=== PATIENT | male | born 1945 | race Caucasian/White ===

== ENCOUNTER → 2016-05-28 | Outpatient (CLI) | payer MEDICARE, OTHER | LOC: OD 10:35 | PROVIDERS: ATTEND Urology | DX: Z85.46 Personal history of malignant neoplasm of prostate (principal) | CPT/HCPCS: 36415; 84153 ==

== ENCOUNTER → 2016-06-18 | Outpatient (CLI) | payer MEDICARE, OTHER ==
[2016-06-18 10:50] LABS: CHOLESTEROL 130.55 mg/dL (0-200); Direct HDL 39 mg/dL (>40); TRIGLYCERIDES 163 mg/dL (<150)
[2016-06-18 11:01] LABS: DIRECT LDL 74 mg/dL (<100)
[2016-06-18 11:02] LABS: VLDL CHOLESTEROL 32.6 mg/dL (10-31)
== END ==
LOC: OD 09:09
PROVIDERS: ATTEND Internal Medicine
DX: E78.5 Hyperlipidemia, unspecified (principal)
CPT/HCPCS: 36415; 80061

== ENCOUNTER → 2016-06-26 | Outpatient (CLI) | payer MEDICARE, OTHER ==
[2016-06-26 15:59] LABS: APPEARANCE,URINE SLIGHTLY-CLOUDY; BILIRUBIN,URINE NEGATIVE (NEGATIVE); GLUCOSE, URINE NEGATIVE (NEGATIVE); KETONES,URINE NEGATIVE (NEGATIVE); LEUKOCYTE ESTERASE,URINE LARGE (NEGATIVE); NITRITE,URINE NEGATIVE (NEGATIVE); PROTEIN,URINE 30 mg/dL (NEGATIVE); URINE SPECIFIC GRAVITY 1.023; UROBILINOGEN,URINE NEGATIVE mg/dL (<2.0)
== END ==
LOC: OD 14:43
PROVIDERS: ATTEND Internal Medicine
DX: N39.0 Urinary tract infection, site not specified (principal)
CPT/HCPCS: 81001; 87086; 87088; 87186

== ENCOUNTER → 2016-09-02 | Outpatient (CLI) | payer MEDICARE, OTHER ==
[2016-09-03 11:21] LABS: PROSTATE SPECIFIC ANTIGEN 1.1 ng/mL (0.0-4.0); PSA % FREE 12.7 % (.); PSA FREE 0.14 ng/mL
== END ==
LOC: OD 10:00
PROVIDERS: ATTEND Urology
DX: C61 Malignant neoplasm of prostate (principal)
CPT/HCPCS: 36415; 84154

== ENCOUNTER → 2017-07-14 | Outpatient (CLI) | payer MEDICARE, OTHER ==
[2017-07-14 08:21] LABS: ABSOLUTE BASOPHILS # (AUTO) 0.1 10^3/uL (0.0-0.2); ABSOLUTE EOSINOPHILS # (AUTO) 0.3 10^3/uL (0.0-0.6); ABSOLUTE LYMPHOCYTES (AUTO) 2.8 10^3/uL (0.5-4.7); ABSOLUTE MONOCYTES (AUTO) 0.7 10^3/uL (0.1-1.4); ABSOLUTE NEUT (AUTO) 6.3 10^3/uL (1.7-8.2); BASOPHILS % (AUTO) 0.6 % (0-2); EOSINOPHILS % (AUTO) 3.4 % (0-6); HEMATOCRIT 40.7 % (37.9-51.0); HEMOGLOBIN 13.9 g/dL (13.5-17.0); LYMPHOCYTES % (AUTO) 26.9 % (13-45); MEAN CORPUSCULAR HEMOGLOBIN 30.8 pg (27.0-33.4); MEAN CORPUSCULAR HGB CONC 34.1 g/dL (32.0-36.0); MEAN CORPUSCULAR VOLUME 91 fl (80-97); MONOCYTES % (AUTO) 7.2 % (3-13); PLATELET COUNT 355 10^3/uL (150-450); RED CELL DISTRIBUTION WIDTH 13.7 % (11.5-14.0); SEGMENTED NEUTROPHILS % (AUTO) 61.9 % (42-78); TOTAL CELLS COUNTED % (AUTO) 100 %; WHITE BLOOD COUNT 10.2 10^3/uL (4.0-10.5)
[2017-07-14 08:42] LABS: ALANINE AMINOTRANSFERASE 34 U/L (21-72); ALBUMIN 4.2 g/dL (3.5-5.0); ALKALINE PHOSPHATASE 80 U/L (38-126); ANION GAP 11 (5-19); ASPARTATE AMINO TRANSFERASE 19 U/L (17-59); BILIRUBIN,DIRECT 0.3 mg/dL (0.0-0.4); BILIRUBIN,TOTAL 0.3 mg/dL (0.2-1.3); BLOOD UREA NITROGEN 17 mg/dL (7-20); CALCIUM 9.9 mg/dL (8.4-10.2); CARBON DIOXIDE 30 mmol/L (22-30); CHLORIDE 105 mmol/L (98-107); GLUCOSE 98 mg/dL (75-110); POTASSIUM 4.5 mmol/L (3.6-5.0); SODIUM 146.1 mmol/L (137-145); TRIGLYCERIDES 177 mg/dL (<150)
[2017-07-14 08:53] LABS: DIRECT LDL 151 mg/dL (<100)
[2017-07-14 08:54] LABS: VLDL CHOLESTEROL 35.4 mg/dL (10-31)
--- NOTE | 2017-07-14 09:12 | RADIOLOGY REPORT (SQ) ---
EXAM DESCRIPTION: KNEE RIGHT 4 VIEWS COMPLETED DATE/TIME: 07/14/2017 8:29 am REASON FOR STUDY: RT KNEE PAIN; LOW BACK PAIN I10 ESSENTIAL (PRIMARY) HYPERTENSION COMPARISON: None. NUMBER OF VIEWS: Four views. TECHNIQUE: AP, lateral, and both oblique radiographic images acquired of the right knee. LIMITATIONS: None. FINDINGS: MINERALIZATION: Normal. BONES: No acute fracture or dislocation. No worrisome bone lesions. JOINT: Mild patellofemoral, medial, and lateral compartment joint space narrowing. SOFT TISSUES: No soft tissue swelling. No radio-opaque foreign body. OTHER: No other significant finding. IMPRESSION: Mild tricompartment joint space narrowing TECHNICAL DOCUMENTATION: JOB ID: [id number] [employer]- All Rights Reserved
--- NOTE | 2017-07-14 09:14 | RADIOLOGY REPORT (SQ) ---
EXAM DESCRIPTION: LUMBAR SPINE COMPLETE COMPLETED DATE/TIME: 07/14/2017 8:29 am REASON FOR STUDY: RT KNEE PAIN; LOW BACK PAIN I10 ESSENTIAL (PRIMARY) HYPERTENSION COMPARISON: None. NUMBER OF VIEWS: Five views including obliques. TECHNIQUE: AP, lateral, oblique, and sacral radiographic images acquired of the lumbar spine. LIMITATIONS: None. FINDINGS: MINERALIZATION: Normal. SEGMENTATION: Normal. No transitional anatomy. ALIGNMENT: Normal. VERTEBRAE: Maintained height. No fracture or worrisome bone lesion. DISCS: Mild disc space loss of height at L2-3 and L5-S1 POSTERIOR ELEMENTS: Bulky facet arthropathy bilaterally at L5-S1, moderate bilateral facet arthropath y at L4-5 HARDWARE: None in the spine. PARASPINAL SOFT TISSUES: Normal. PELVIS: Not included in the field of view. Mild vacuum phenomenon at the SI joints bilaterally OTHER: No other significant finding. IMPRESSION: Lower lumbar facet arthropathy. TECHNICAL DOCUMENTATION: JOB ID: [id number] [employer]- All Rights Reserved
--- NOTE | 2017-07-14 09:15 | RADIOLOGY REPORT (SQ) ---
EXAM DESCRIPTION: SACRUM AND COCCYX COMPLETED DATE/TIME: 07/14/2017 8:30 am REASON FOR STUDY: RT KNEE PAIN; LOW BACK PAIN I10 ESSENTIAL (PRIMARY) HYPERTENSION COMPARISON: Lumbar spine films same date NUMBER OF VIEWS: Three views. TECHNIQUE: AP, lateral, and tilt views of the sacrum and coccyx. LIMITATIONS: None. FINDINGS: MINERALIZATION: Normal. BONES: Mild bilateral SI joint sclerosis. No fracture. SOFT TISSUES: Radiotherapy seeds for prostate treatment OTHER: No other significant finding. IMPRESSION: Mild SI joint sclerosis bilaterally TECHNICAL DOCUMENTATION: JOB ID: [id number] [employer]- All Rights Reserved
== END ==
LOC: OD 07:42
PROVIDERS: ATTEND Family Medicine Geriatric Medicine
DX: M25.561 Pain in right knee (principal); M54.40 Lumbago with sciatica, unspecified side; I10 Essential (primary) hypertension; E78.5 Hyperlipidemia, unspecified; J30.89 Other allergic rhinitis; Z79.899 Other long term (current) drug therapy
CPT/HCPCS: 36415; 72110; 72220; 80053; 80061; 84443; 85025

== ENCOUNTER → 2017-09-10 | Outpatient (CLI) | payer MEDICARE, OTHER ==
[2017-09-10 11:11] LABS: ALANINE AMINOTRANSFERASE 32 U/L (21-72); ASPARTATE AMINO TRANSFERASE 22 U/L (17-59); CHOLESTEROL 125.99 mg/dL (0-200); TRIGLYCERIDES 114 mg/dL (<150)
[2017-09-10 11:21] LABS: DIRECT LDL 55 mg/dL (<100)
== END ==
LOC: OD 09:39
PROVIDERS: ATTEND Family Medicine Geriatric Medicine
DX: E78.5 Hyperlipidemia, unspecified (principal); Z79.899 Other long term (current) drug therapy
CPT/HCPCS: 36415; 80061; 84450; 84460

== ENCOUNTER → 2017-10-16 | Outpatient (CLI) | payer MEDICARE, OTHER ==
[2017-10-17 12:07] LABS: PROSTATE SPECIFIC ANTIGEN 0.9 ng/mL (0.0-4.0); PSA % FREE 15.6 % (.); PSA FREE 0.14 ng/mL
== END ==
LOC: OD 10:27
PROVIDERS: ATTEND Urology
DX: C61 Malignant neoplasm of prostate (principal)
CPT/HCPCS: 36415; 84154

== ENCOUNTER → 2017-12-08 | Outpatient (CLI) | payer MEDICARE, OTHER ==
--- NOTE | 2017-12-08 10:56 | RADIOLOGY REPORT (SQ) ---
EXAM DESCRIPTION: CT ABD/PELVIS COMBO COMPLETED DATE/TIME: 12/08/2017 10:12 am REASON FOR STUDY: MICROSCOPIC HEMATURIA R31.29 OTHER MICROSCOPIC HEMATURIA COMPARISON: None. TECHNIQUE: CT scan of the abdomen and pelvis performed with and without intravenous contrast, and wi thout oral contrast. Contrasted imaging performed helical scanning technique and dynamic intravenous contrast injection. Images reviewed with lung, soft tissue, and bone windows. Reconstructed coronal a nd sagittal MPR images reviewed. Delayed images for evaluation of the urinary system also acquired. A ll images stored on PACS. All CT scanners at this facility use dose modulation, iterative reconstruction, and/or weight based d osing when appropriate to reduce radiation dose to as low as reasonably achievable (ALARA). [facility]: Dose Right [facility]: CareDose [facility]: Dose Right [facility]: Teradose 4D [facility]: SwiftPayMD(TM) by [employer] CONTRAST TYPE AND DOSE: contrast/concentration: Isovue 370.00 mg/ml; Total Contrast Delivered: 100.0 ml; Total Saline Delivered: 72.0 ml RENAL FUNCTION: Creatinine 1.0 RADIATION DOSE: CT Rad equipment meets quality standard of care and radiation dose reduction techniq ues were employed. CTDIvol: 22.6 - 26.0 mGy. DLP: 4202 mGy-cm. . LIMITATIONS: None. FINDINGS: NON-CONTRASTED IMAGING: No significant renal or bladder calcifications. No other significa nt organ calcifications. POST-CONTRASTED IMAGING: LOWER CHEST: No significant findings. No nodules or infiltrates. LIVER: Normal size. No masses. No dilated ducts. SPLEEN: Normal size. No focal lesions. PANCREAS: No masses. No significant calcifications. No adjacent inflammation or peripancreatic fluid collections. Pancreatic duct not dilated. GALLBLADDER: Surgically absent ADRENAL GLANDS: No significant masses or asymmetry. RIGHT KIDNEY AND URETER: No solid masses. No significant calcifications. No hydronephrosis or hyd roureter. LEFT KIDNEY AND URETER: No solid masses. No significant calcifications. No hydronephrosis or hydr oureter. AORTA AND VESSELS: No aneurysm. No dissection. Renal arteries, SMA, celiac without stenosis. RETROPERITONEUM: No retroperitoneal adenopathy, hemorrhage or masses. BOWEL AND PERITONEAL CAVITY: No masses or inflammatory changes. No free fluid or peritoneal masses. Scattered colonic diverticuli without CT signs of acute diverticulitis. APPENDIX: Normal. PELVIS: No mass. No free fluid. Normal bladder. ABDOMINAL WALL: No masses. No hernias. BONES: No significant or acute findings. OTHER: No other significant finding. IMPRESSION: No CT findings to explain history of microscopic hematuria. Post cholecystectomy. Colonic diverticuli are present without CT signs of acute diverticulitis. TECHNICAL DOCUMENTATION: JOB ID: [id number] Quality ID # [id number]: Final reports with documentation of one or more dose reduction techniques (e.g., Au tomated exposure control, adjustment of the mA and/or kV according to patient size, use of iterative reconstruction technique) 2010 [employer]- All Rights Reserved Reading location - IP/workstation name: [facility] [place]
== END ==
LOC: RAD 09:29
PROVIDERS: ATTEND Urology
DX: R31.29 Other microscopic hematuria (principal)
CPT/HCPCS: 74178; 82565

== ENCOUNTER → 2018-03-16 | Outpatient (CLI) | payer MEDICARE, OTHER ==
[2018-03-16 10:56] LABS: CHOLESTEROL 202.09 mg/dL (0-200); TRIGLYCERIDES 215 mg/dL (<150)
[2018-03-16 11:07] LABS: DIRECT LDL 141 mg/dL (<100)
== END ==
LOC: OD 09:35
PROVIDERS: ATTEND Internal Medicine
DX: E78.5 Hyperlipidemia, unspecified (principal); E03.9 Hypothyroidism, unspecified; N40.0 Benign prostatic hyperplasia without lower urinary tract symptoms
CPT/HCPCS: 36415; 80061; 84153; 84443

== ENCOUNTER → 2018-06-22 | Outpatient (CLI) | payer MEDICARE, OTHER ==
[2018-06-22 09:48] LABS: ABSOLUTE EOSINOPHILS # (AUTO) 0.2 10^3/uL (0.0-0.6); ABSOLUTE LYMPHOCYTES (AUTO) 2.2 10^3/uL (0.5-4.7); ABSOLUTE MONOCYTES (AUTO) 0.8 10^3/uL (0.1-1.4); ABSOLUTE NEUT (AUTO) 6.9 10^3/uL (1.7-8.2); BASOPHILS % (AUTO) 0.4 % (0-2); EOSINOPHILS % (AUTO) 1.8 % (0-6); HEMATOCRIT 40.4 % (37.9-51.0); HEMOGLOBIN 13.9 g/dL (13.5-17.0); MEAN CORPUSCULAR HEMOGLOBIN 30.9 pg (27.0-33.4); MEAN CORPUSCULAR HGB CONC 34.5 g/dL (32.0-36.0); MEAN CORPUSCULAR VOLUME 89 fl (80-97); MONOCYTES % (AUTO) 7.5 % (3-13); PLATELET COUNT 328 10^3/uL (150-450); RED BLOOD COUNT 4.51 10^6/uL (4.35-5.55); RED CELL DISTRIBUTION WIDTH 13.1 % (11.5-14.0); SEGMENTED NEUTROPHILS % (AUTO) 68.3 % (42-78); TOTAL CELLS COUNTED % (AUTO) 100 %
[2018-06-22 10:03] LABS: ALANINE AMINOTRANSFERASE 34 U/L (21-72); ALBUMIN 4.5 g/dL (3.5-5.0); ALKALINE PHOSPHATASE 82 U/L (38-126); ANION GAP 11 (5-19); ASPARTATE AMINO TRANSFERASE 21 U/L (17-59); BILIRUBIN,DIRECT 0.1 mg/dL (0.0-0.4); BILIRUBIN,TOTAL 0.2 mg/dL (0.2-1.3); BLOOD UREA NITROGEN 22 mg/dL (7-20); CALCIUM 9.9 mg/dL (8.4-10.2); CARBON DIOXIDE 33 mmol/L (22-30); CHLORIDE 103 mmol/L (98-107); CHOLESTEROL 152.54 mg/dL (0-200); GLUCOSE 93 mg/dL (75-110); POTASSIUM 4.3 mmol/L (3.6-5.0); SODIUM 146.9 mmol/L (137-145); TRIGLYCERIDES 183 mg/dL (<150)
[2018-06-22 10:14] LABS: DIRECT LDL 94 mg/dL (<100)
[2018-06-22 10:19] LABS: VLDL CHOLESTEROL 36.6 mg/dL (10-31)
== END ==
LOC: OD 08:35
PROVIDERS: ATTEND Internal Medicine
DX: E78.5 Hyperlipidemia, unspecified (principal); D64.9 Anemia, unspecified; R10.9 Unspecified abdominal pain
CPT/HCPCS: 36415; 80053; 80061; 85025

== ENCOUNTER → 2018-09-16 | Outpatient (CLI) | payer MEDICARE, OTHER ==
[2018-09-16 10:48] LABS: ANION GAP 9 (5-19); BLOOD UREA NITROGEN 20 mg/dL (7-20); CALCIUM 10.3 mg/dL (8.4-10.2); CARBON DIOXIDE 31 mmol/L (22-30); CHLORIDE 103 mmol/L (98-107); CHOLESTEROL 147.66 mg/dL (0-200); GLUCOSE 93 mg/dL (75-110); POTASSIUM 4.7 mmol/L (3.6-5.0); SODIUM 143.2 mmol/L (137-145); TRIGLYCERIDES 181 mg/dL (<150)
[2018-09-16 10:59] LABS: DIRECT LDL 95 mg/dL (<100)
[2018-09-16 11:09] LABS: VLDL CHOLESTEROL 36.2 mg/dL (10-31)
== END ==
LOC: OD 08:53
PROVIDERS: ATTEND Internal Medicine
DX: E78.5 Hyperlipidemia, unspecified (principal); N19 Unspecified kidney failure
CPT/HCPCS: 36415; 80048; 80061

== ENCOUNTER → 2019-03-08 | Outpatient (CLI) | payer MEDICARE, OTHER ==
[2019-03-08 13:23] LABS: ANION GAP 7 (5-19); BLOOD UREA NITROGEN 22 mg/dL (7-20); CALCIUM 10.3 mg/dL (8.4-10.2); CARBON DIOXIDE 32 mmol/L (22-30); CHLORIDE 103 mmol/L (98-107); CHOLESTEROL 150.63 mg/dL (0-200); GLUCOSE 95 mg/dL (75-110); POTASSIUM 5.1 mmol/L (3.6-5.0); TRIGLYCERIDES 167 mg/dL (<150)
[2019-03-08 13:34] LABS: DIRECT LDL 96 mg/dL (<100)
[2019-03-08 13:39] LABS: VLDL CHOLESTEROL 33.4 mg/dL (10-31)
== END ==
LOC: OD 09:26
PROVIDERS: ATTEND Family Medicine
DX: E78.5 Hyperlipidemia, unspecified (principal); N19 Unspecified kidney failure
CPT/HCPCS: 36415; 80048; 80061

== ENCOUNTER 2019-11-30 14:20 | Inpatient (IN) | payer MEDICARE, OTHER ==
[~2019-11-30 14:20] MED LIST: PHENYLEPHRINE HCL INJ/PF 10 MG/1 ML SDV ONE; SUCCINYLCHOLINE CHLORIDE INJ 200 MG/10 ML VIAL ONE
--- NOTE | 2019-11-30 15:45 | ER Document Report ---
ED Medical Screen (RME) - General Chief Complaint: Abscess Stated Complaint: ABSCESS Time Seen by Provider: 11/30/19 15:40 Primary Care Provider: ARINA AGUIRRE MD [Primary Care Provider] - Follow up as needed Information source: Patient Notes: Patient presents with abscess to the right upper back area for the past week. Patient was seen by his primary doctor and referred to the surgical clinic for management of the abscess. Patient went to the surgical clinic and was seen by the PA who felt that abscess was larger than what to be managed in the office and advised follow-up in the ER for consultation with Dr. Moreno. I have greeted and performed a rapid initial assessment of this patient. A comprehensive ED assessment and evaluation of the patient, analysis of test results and completion of the medical decision making process will be conducted by additional ED providers. TRAVEL OUTSIDE OF THE [place] IN LAST 30 DAYS: Yes - Related Data Allergies/Adverse Reactions: No Known Allergies Allergy (Verified 11/30/19 15:39) Physical Exam - Vital signs Vitals: Temp Pulse Resp BP Pulse Ox 99.1 F 72 20 128/70 H 96 11/30/19 15:00 11/30/19 15:00 11/30/19 15:00 11/30/19 15:00 11/30/19 15:00 - Skin Skin irregularity: Abscess - Large abscess to the right upper back area with surrounding erythema, Erythema Course - Vital Signs Vital signs: Temp Pulse Resp BP Pulse Ox 99.1 F 72 20 128/70 H 96 11/30/19 15:00 11/30/19 15:00 11/30/19 15:00 11/30/19 15:00 11/30/19 15:00 Doctor's Discharge - Discharge Referrals: ARINA AGUIRRE MD [Primary Care Provider] - Follow up as needed
[2019-11-30] MEDS ORDERED: SULFAMETHOX/TRIMETH 800-160 MG/10 ML VIAL IV ONE (16:58)
[2019-11-30] MEDS ORDERED: NORMAL SALINE 1000 ML 1,000 ML IV ONE (16:58)
--- NOTE | 2019-11-30 17:04 | ER Document Report ---
ED General - General Chief Complaint: Abscess Stated Complaint: ABSCESS Time Seen by Provider: 11/30/19 15:40 Primary Care Provider: ARINA AGUIRRE MD [Primary Care Provider] - Follow up as needed Notes: Patient is a 74-year-old male with no reported past medical history who presents to the emergency department with a chief complaint of abscess formation to the right upper back that began about a week ago. Denies any history of the same. Was seen by his primary doctor who referred him to the "surgical clinic" for evaluation. The physician city carrier assistant for Dr. Moreno at the surgical clinic advised this was too extensive for the clinic and referred the patient to the emergency department for further evaluation and care. Patient denies any fever or significant drainage. Denies any nausea, vomiting, chills, night sweats. TRAVEL OUTSIDE OF THE [place] IN LAST 30 DAYS: Yes - Related Data Allergies/Adverse Reactions: No Known Allergies Allergy (Verified 11/30/19 15:39) Home Medications: cholesterol. losartan. aspirin. flonase. tylenol. gabapentin Past Medical History - General Information source: Patient - Social History Smoking Status: Never Smoker Chew tobacco use (# tins/day): No Frequency of alcohol use: None Drug Abuse: None Family History: Reviewed & Not Pertinent Patient has homicidal ideation: No Review of Systems - Review of Systems Notes: As per HPI otherwise negative Physical Exam - Vital signs Vitals: Temp Pulse Resp BP Pulse Ox 99.1 F 72 20 128/70 H 96 11/30/19 15:00 11/30/19 15:00 11/30/19 15:00 11/30/19 15:00 11/30/19 15:00 - General General appearance: Appears well, Alert In distress: None - Respiratory Respiratory status: No respiratory distress Chest status: Nontender Breath sounds: Normal Chest palpation: Normal - Cardiovascular Rhythm: Regular Heart sounds: Normal auscultation - Neurological Neuro grossly intact: Yes Cognition: Normal Orientation: AAOx4 - Psychological Associated symptoms: Normal affect, Normal mood - Skin Skin Color: Other - Circumferential area of erythema and induration to the right upper back small section pointing with scant drainage that is purulent in nature. Area demonstrates increased warmth. No proximal streaking. Area is tender to palpation. Course - Re-evaluation Re-evalutation: 11/30/19 17:03 Dr. Moreno to bedside, evaluated the patient and requested IV Bactrim. He will take the patient to the operating room for definitive care. Patient stable for intervention at this time. Labs and medication ordered. Pending studies to the operating room. - Vital Signs Vital signs: Temp Pulse Resp BP Pulse Ox 99.1 F 72 20 128/70 H 96 11/30/19 15:40 11/30/19 15:00 11/30/19 15:00 11/30/19 15:00 11/30/19 15:00 Discharge - Discharge Clinical Impression: Abscess of back Condition: Stable Disposition: OTHER Admitting Provider: Tiffanie Unit Admitted: OR Referrals: ARINA AGUIRRE MD [Primary Care Provider] - Follow up as needed
--- NOTE | 2019-11-30 17:17 | PDOC H&P ---
History of Present Illness Admission Date/PCP: ARINA AGUIRRE MD History of Present Illness: JUAN LUIS HALL is a 74 year old malePatient presents with abscess to the right upper back area for the past week. Patient was seen by his primary doctor and referred to the surgical clinic for management of the abscess. Patient went to the surgical clinic and was seen by the PA who felt that abscess was larger than what to be managed in the office and advised follow-up in the ER for cons ultation with Dr. Moreno Past Medical History Cardiac Medical History: Reports: Hyperlipidema, Hypertension Pulmonary Medical History: Denies: None, Asthma, Bronchitis, Chronic Obstructive Pulmonary Disease (COPD), Intubation, Pneumonia, Respiratory Failure, Sleep Apnea, Tuberculosis, Other EENT Medical History: Denies: None, Cataracts, Eyes, Ears, Nose, Throat, Other Neurological Medical History: Denies: None, Hemorrhagic CVA, Ischemic CVA, Migraine, Multiple Sclerosis, Seizures, Other Endocrine Medical History: Denies: None, Diabetes Mellitus Type 1, Diabetes Mellitus Type 2, Gestational Diabetes, Hyperthyroidism, Hypothyroidism, Obesity, Other Malignancy Medical History: Denies: None, Bone Cancer, Brain Cancer, Breast Cancer, Cervical Cancer, Colorectal Cancer, Leukemia, Liver Cancer, Lung Cancer, Lymphoma, Ovarian Cancer, Pancreatic Cancer, Renal (Kidney) Cancer, Skin Cancer, Other GI Medical History: Denies: None, Cirrhosis, Crohn's Disease, Diverticulitis, Gastroesophageal R eflux Disease, Hepatitis, Hiatal Hernia, Peptic Ulcer Disease, Ulcerative Colitis, Other Musculoskeltal Medical History: Reports: Arthritis Denies: None, Fibromyalgia, Gout, Other Psychiatric Medical History: Denies: None, Alcohol Dependency, Attention Deficit Hyperactivity Disorder, Bipolar Disorder, Dementia, Depression, General Anxiety Disorder, Personality Disorder, Post Traumatic Stress Disorder, Schizoaffective Disorder, Substance Abuse, Tobacco Dependency, Other Traumatic Medical History: Denies: None, Gunshot Wound, Pneumothorax, Stab Wound, Traumatic Brain Injury, Other Hematology: Denies: None, Anemia, Hemophilia, Sickle Cell Disease, Bleeding Tendencies, Heparin Induced Thrombocytopenia, Neutropenia, Other Past Surgical History Past Surgical History: Reports: Cholecystectomy Social History Smoking Status: Never Smoker Electronic Cigarette use?: No Family History Family History: Reviewed & Not Pertinent Parental Family History Reviewed: No Children Family History Reviewed: NA Sibling(s) Family History Reviewed.: NA Medication/Allergy Allergies/Adverse Reactions: No Known Allergies Allergy (Verified 11/30/19 15:39) Review of Systems Constitutional: PRESENT: fatigue Eyes: ABSENT: as per HPI, visual disturbances, other Ears: ABSENT: as per HPI, hearing changes, other Nose, Mouth, and Throat: ABSENT: as per HPI, headache(s), mouth pain, sore throat, vertigo, other Breasts: ABSENT: as per HPI, other Cardiovascular: ABSENT: as per HPI, chest pain, dyspnea on exertion, edema, orthropnea, palpitations, other Respiratory: ABSENT: as per HPI, cough, dyspnea, hemoptysis, sputum, other Gastrointestinal: ABSENT: as per HPI, abdominal pain, bloating, coffee ground emesis, constipation, diarrhea, dysphagia, heartburn, hematemesis, hematochezia, melena, nausea, vomiting, other Genitourinary: ABSENT: as per HPI, difficulty urinating, dysuria, hematuria, nocturia, other Musculoskeletal: ABSENT: as per HPI, back pain, deformity, joint swelling, muscle weakness, other Integumentary: PRESENT: erythema, wounds Neurological: ABSENT: as per HPI, abnormal gait, abnormal movements, abnormal speech, confusion, convulsions, dizziness, focal weakness, frequent falls, lack of coordination, memory loss, numbness, paresthesias, restless legs, syncope, tingling, tremor(s), vertigo, weakness, other Psychiatric: ABSENT: as per HPI, anxiety, depression, hallucinations, homidical ideation, suicidal ideation, other Endocrine: ABSENT: as per HPI, cold intolerance, flushing, heat intolerance, menstrual abnormalities, polydipsia, polyphagia, polyuria, other Hematologic/Lymphatic: ABSENT: as per HPI, easy bleeding, easy bruising, lymphadenopathy, other Allergic/Immunologic: ABSENT: as per HPI, seasonal rhinorrhea, other Physical Exam Vital Signs: Temp Pulse Resp BP Pulse Ox 99.1 F 72 20 128/70 H 96 11/30/19 15:40 11/30/19 15:00 11/30/19 15:00 11/30/19 15:00 11/30/19 15:00 Intake & Output 11/29/19 11/30/19 12/01/19 06:59 06:59 06:59 Weight 121.7 kg General appearance: PRESENT: no acute distress Eye exam: PRESENT: EOMI Ear exam: PRESENT: normal external ear exam Mouth exam: PRESENT: moist Neck exam: PRESENT: full ROM Respiratory exam: PRESENT: clear to auscultation alma delia Cardiovascular exam: PRESENT: RRR Pulses: PRESENT: normal radial pulses, normal femoral pulses Breast: PRESENT: Normal GI/Abdominal exam: ABSENT: ascites, diminished bowel sounds, distended, firm, guarding, hernia, hyperactive bowel sounds, hypoactive bowel sounds, mass, Emerson's sign, normal bowel sounds, organolmegaly, rebound, rigid, soft, tenderness, other Rectal exam: PRESENT: deferred Gentrourinary exam: ABSENT: ecchymosis, erythema, lacerations, lesions, scrotal swelling, testicular tenderness, urethral discharge, indwelling catheter, other Extremities exam: ABSENT: calf tenderness, clubbing, full ROM, joint swelling, pedal edema, tenderness, +1 edema, +2 edema, other Musculoskeletal exam: PRESENT: full ROM, other - Right posterior shoulder there is approximately a 4 cm area of induration with a approximately a 12 cm area of surrounding cellulitis there is some purulent drainage from the center of this induration it appears to be multiloculated fluctuant and with a central area of necrosis consistent with an MRSA abscess Neurological exam: PRESENT: alert Psychiatric exam: PRESENT: appropriate affect Focused psych exam: PRESENT: flight of ideas Skin exam: PRESENT: dry Assessment & Plan - Plan Summary Plan Summary: Impression is back abscess probable MRSA. Plan is for operative excision and drainage of the right posterior shoulder abscess Recent benefits of been discussed with the patient he understands he will have an open wound which will require packing or wound VAC postop. We will start the patient IV antibiotics IV fluid hydration and perform the procedure later this evening.
[2019-11-30 18:12] LABS: ABSOLUTE BASOPHILS # (AUTO) 0.1 10^3/uL (0.0-0.2); ABSOLUTE EOSINOPHILS # (AUTO) 0.2 10^3/uL (0.0-0.6); ABSOLUTE LYMPHOCYTES (AUTO) 2.3 10^3/uL (0.5-4.7); ABSOLUTE MONOCYTES (AUTO) 1.4 10^3/uL (0.1-1.4); ABSOLUTE NEUT (AUTO) 13.9 10^3/uL (1.7-8.2); BASOPHILS % (AUTO) 0.4 % (0-2); EOSINOPHILS % (AUTO) 1.1 % (0-6); HEMATOCRIT 39.4 % (37.9-51.0); HEMOGLOBIN 13.4 g/dL (13.5-17.0); LYMPHOCYTES % (AUTO) 12.7 % (13-45); MEAN CORPUSCULAR HEMOGLOBIN 30.9 pg (27.0-33.4); MEAN CORPUSCULAR VOLUME 91 fl (80-97); MONOCYTES % (AUTO) 7.7 % (3-13); PLATELET COUNT 336 10^3/uL (150-450); RED BLOOD COUNT 4.34 10^6/uL (4.35-5.55); RED CELL DISTRIBUTION WIDTH 13.6 % (11.5-14.0); SEGMENTED NEUTROPHILS % (AUTO) 78.1 % (42-78); TOTAL CELLS COUNTED % (AUTO) 100 %; WHITE BLOOD COUNT 17.8 10^3/uL (4.0-10.5)
[2019-11-30] MEDS ORDERED: ONDANSETRON HCL INJ/PF 4 MG/2 ML SDV IV ONE (18:25)
[2019-11-30] MEDS ORDERED: HYDROMORPHONE HCL INJ/PF 2 MG/ML AMPULE IV ONE (18:25)
[2019-11-30 18:36] LABS: ANION GAP 7 (5-19); BLOOD UREA NITROGEN 21 mg/dL (7-20); CALCIUM 10.2 mg/dL (8.4-10.2); CARBON DIOXIDE 30 mmol/L (22-30); CHLORIDE 103 mmol/L (98-107); GLUCOSE 99 mg/dL (75-110); POTASSIUM 4.5 mmol/L (3.6-5.0)
[2019-11-30] MEDS ORDERED: FENTANYL CITRATE INJ/PF 100 MCG/2 ML AMPUL ONE (19:32)
[2019-11-30] MEDS ORDERED: ONDANSETRON HCL INJ/PF 4 MG/2 ML SDV ONE (19:32)
[2019-11-30] MEDS ORDERED: MIDAZOLAM 2 MG/2 ML INJ ONE (19:32)
[2019-11-30] MEDS ORDERED: PROPOFOL INJ 200 MG/20 ML VIAL IV ONE (19:32)
[2019-11-30] MEDS ORDERED: DEXAMETHASONE SOD PHOSPHATE INJ 4 MG/1 ML VIAL ONE (19:32)
[2019-11-30] MEDS ORDERED: LIDOCAINE 2% INJ-PF (20 MG/ML) 10 ML AMPUL ONE (19:33)
[2019-11-30] MEDS ORDERED: DIPHENHYDRAMINE HCL 50 MG/ML VIAL IV PRN (20:25)
[2019-11-30] MEDS ORDERED: MORPHINE SULFATE 10 MG/ML INJ IV PRN ×2 (20:25→20:50)
[2019-11-30] MEDS ORDERED: ONDANSETRON HCL INJ/PF 4 MG/2 ML SDV IV PRN ×2 (20:25→20:50)
[2019-11-30] MEDS ORDERED: OXYCODONE-ACETAMINOPHEN 5-325 MG TABLET PO PRN ×3 (20:25→20:50)
[2019-11-30] MEDS ORDERED: FENTANYL CITRATE INJ/PF 100 MCG/2 ML AMPUL IV PRN ×3 (20:25)
[2019-11-30] MEDS ORDERED: PROMETHAZINE HCL INJ 25 MG/1 ML VIAL IV PRN ×2 (20:25)
[2019-11-30] MEDS ORDERED: MEPERIDINE HCL/PF INJ 25 MG/1 ML DISP.SYRIN IV PRN (20:25)
[2019-11-30] MEDS ORDERED: ACETAMINOPHEN 325 MG TABLET PO PRN (20:50)
[2019-11-30] MEDS ORDERED: POTASSI CL 20 MEQ/1/2NS 1L 20 MEQ/1,000 ML RTUINJ IV PRN (20:50)
--- NOTE | 2019-11-30 21:08 | Operative Report ---
Nonrecallable Operative Report DATE OF SURGERY: 11/30/19 PREOPERATIVE DIAGNOSIS: Right back abscess POSTOPERATIVE DIAGNOSIS: Right back abscess OPERATION: Excision of right back abscess SURGEON: KERMIT FORBES ANESTHESIA: GA TISSUE REMOVED OR ALTERED: Skin right upper back COMPLICATIONS: None ESTIMATED BLOOD LOSS: 150 INTRAOPERATIVE FINDINGS: Skin abscess right upper back probable MRSA PROCEDURE: Patient was brought to the operating room awake alert stable condition placed on the operative table in supine position induced under general anesthesia intubated. He was then placed in left lateral decubitus position. After appropriate timeout site verification the procedure commenced. The right upper back was prepped and draped in usual sterile fashion. Patient had a 12 cm diameter abscess in the right upper back that appears to be multiloculated draining from multiple sites consistent with MRSA. Elliptical incision was made around the abscess and elliptical fashion using Bovie cautery on cutting mode. Dissection was carried down through subcutaneous tissue with the Bovie cautery to the deep subcutaneous tissue and fat on the right upper back. We excised the abscess with Bovie cautery. There was no further evidence of drainage of purulent fluid from the edges of the skin. The small vessels were cauterized. There was a number of large vessels that were controlled with [id number] [id number] Vicryl suture. Once we get good hemostasis the wound was irrigated normal saline suctioned dry and packed with a Betadine soaked sponge. A sterile dressing was applied which completed the procedure and the patient was then placed back in a supine position. He was extubated transferred recovery in stable condition. Estimated blood loss for the procedure was 125 cc. Sponge and needle counts were correct x2. No complications
[2019-11-30] MEDS: FAMOTIDINE INJ/PF 20 MG/2 ML SDV IV SCH (23:27)
[2019-12-01] MEDS: SULFAMETHOXAZOLE IV SCH ×4 (00:13→17:58)
[2019-12-01] MEDS: DEXTROSE 5% IV SCH ×4 (00:13→17:58)
[2019-12-01] MEDS: WATER IV SCH ×4 (00:13→17:58)
[2019-12-01] MEDS: TRIMETHOPRIM IV SCH ×4 (00:13→17:58)
[2019-12-01 05:13] LABS: ABSOLUTE BASOPHILS # (AUTO) 0.1 10^3/uL (0.0-0.2); ABSOLUTE LYMPHOCYTES (AUTO) 0.9 10^3/uL (0.5-4.7); ABSOLUTE MONOCYTES (AUTO) 0.2 10^3/uL (0.1-1.4); ABSOLUTE NEUT (AUTO) 12.4 10^3/uL (1.7-8.2); BASOPHILS % (AUTO) 0.4 % (0-2); HEMATOCRIT 37.7 % (37.9-51.0); HEMOGLOBIN 12.8 g/dL (13.5-17.0); LYMPHOCYTES % (AUTO) 6.9 % (13-45); MEAN CORPUSCULAR HEMOGLOBIN 30.9 pg (27.0-33.4); MEAN CORPUSCULAR HGB CONC 33.9 g/dL (32.0-36.0); MEAN CORPUSCULAR VOLUME 91 fl (80-97); MONOCYTES % (AUTO) 1.6 % (3-13); PLATELET COUNT 301 10^3/uL (150-450); RED BLOOD COUNT 4.14 10^6/uL (4.35-5.55); RED CELL DISTRIBUTION WIDTH 13.6 % (11.5-14.0); SEGMENTED NEUTROPHILS % (AUTO) 91.1 % (42-78); TOTAL CELLS COUNTED % (AUTO) 100 %; WHITE BLOOD COUNT 13.6 10^3/uL (4.0-10.5)
[2019-12-01 05:38] LABS: ANION GAP 8 (5-19); BLOOD UREA NITROGEN 18 mg/dL (7-20); CALCIUM 9.6 mg/dL (8.4-10.2); CARBON DIOXIDE 26 mmol/L (22-30); CHLORIDE 104 mmol/L (98-107); GLUCOSE 160 mg/dL (75-110); POTASSIUM 4.8 mmol/L (3.6-5.0)
[2019-12-01] MEDS: FAMOTIDINE INJ/PF 20 MG/2 ML SDV IV SCH ×2 (09:33→21:55)
--- NOTE | 2019-12-01 10:01 | PDOC PROGRESS REPORT ---
Subjective Progress Note for:: 12/01/19 Subjective:: Feels well no complaints. Reason For Visit: BACK ABSCESS Physical Exam Vital Signs: Temp Pulse Resp BP Pulse Ox 97.6 F 65 16 124/67 96 12/01/19 07:41 12/01/19 07:41 12/01/19 07:41 12/01/19 07:41 12/01/19 07:41 Intake & Output 11/30/19 12/01/19 12/02/19 06:59 06:59 06:59 Intake Total 2534 Output Total 460 Balance 2074 Weight 118.4 kg General appearance: PRESENT: no acute distress Respiratory exam: PRESENT: clear to auscultation alma delia Cardiovascular exam: PRESENT: RRR Skin exam: PRESENT: other - Large back wound is clean but there is some oozing at the skin edges that was controlled with dry gauze dressing packing. Collin azul's Betadine packing was removed and Kerlix wet-to-dry dressing changes were begun. Results Laboratory Results: 12/01/19 04:37 12/01/19 04:37 11/30/19 11/30/19 12/01/19 17:45 17:45 04:37 WBC 17.8 H 13.6 H RBC 4.34 L 4.14 L Hgb 13.4 L 12.8 L Hct 39.4 37.7 L MCV 91 91 MCH 30.9 30.9 MCHC 34.0 33.9 RDW 13.6 13.6 Plt Count 336 301 Seg Neutrophils % 78.1 H 91.1 H Sodium 139.8 Potassium 4.5 Chloride 103 Carbon Dioxide 30 Anion Gap 7 BUN 21 H Creatinine 0.99 Est GFR ( Amer) > 60 Glucose 99 Calcium 10.2 12/01/19 04:37 WBC RBC Hgb Hct MCV MCH MCHC RDW Plt Count Seg Neutrophils % Sodium 137.5 Potassium 4.8 Chloride 104 Carbon Dioxide 26 Anion Gap 8 BUN 18 Creatinine 0.93 Est GFR ( Amer) > 60 Glucose 160 H Calcium 9.6 Assessment & Plan - Diagnosis (1) Abscess of back Is this a current diagnosis for this admission?: Yes Plan: Status post excisional debridement. With the oozing at the skin edges, wound VAC was not placed today. Oozing controlled with dry gauze. When the oozing stops will place wound VAC with outpatient wound VAC therapy. It appears that t he infection is under control.
[2019-12-01] MEDS: FLUTICASONE NASAL SPRAY 50 MCG/SPRY 120 SPRAY/16 GM NASL SCH (21:55)
[2019-12-02] MEDS: WATER IV SCH ×4 (00:16→17:56)
[2019-12-02] MEDS: DEXTROSE 5% IV SCH ×4 (00:16→17:56)
[2019-12-02] MEDS: TRIMETHOPRIM IV SCH ×4 (00:16→17:56)
[2019-12-02] MEDS: SULFAMETHOXAZOLE IV SCH ×4 (00:16→17:56)
[2019-12-02] MEDS ORDERED: ONDANSETRON HCL INJ/PF 4 MG/2 ML SDV IV PRN (08:39)
[2019-12-02] MEDS ORDERED: KETOROLAC TROMETHAMINE INJ/PF 30 MG/1 ML SDV IV PRN (08:39)
--- NOTE | 2019-12-02 08:43 | PDOC PROGRESS REPORT ---
Subjective Progress Note for:: 12/02/19 Reason For Visit: BACK ABSCESS Patient on BiPAP; pain reasonably controlled, no fever Physical Exam Vital Signs: Temp Pulse Resp BP Pulse Ox 97.6 F 59 L 16 143/70 H 96 12/02/19 03:02 12/02/19 03:02 12/02/19 03:02 12/02/19 03:02 12/02/19 03:02 Intake & Output 12/01/19 12/02/19 12/03/19 06:59 06:59 06:59 Intake Total 2534 2091 816 Output Total 460 2920 Balance 2074 -829 816 Weight 118.4 kg 114.9 kg General appearance: PRESENT: no acute distress Skin exam: PRESENT: other - Patient rolled in left lateral cubitus position. Packing removed. Wound is clean, no foul-smelling drainage. Surrounding skin not serrated. No granulation tissue yet Results Laboratory Results: 12/01/19 04:37 12/01/19 04:37 Assessment & Plan - Diagnosis (1) Abscess of back Plan: Impression: Stable wound 2 days status post thorough debridement, left open, growing gram-positive cocci, on Bactrim, septic source controlled Plan: 1. Start wound VAC therapy today; hopefully in the next several weeks can develop a nice wound bed suitable for a split-thickness skin grafting 2. Will start Toradol, Colace; place on sliding scale for recent blood sugar of 160 3. I reviewed the above with the patient. May be ready to go home in the next 24 to 48 hours.
[2019-12-02] MEDS ORDERED: GLUCAGON,HUMAN RECOMB 1 MG INJ IM PRN (08:44)
[2019-12-02] MEDS ORDERED: DEXTROSE 50%-WATER 25 GM/50 ML DISP.SYRIN IV PRN ×2 (08:44)
[2019-12-02] MEDS ORDERED: DEXTROSE 40% GEL 15 GM TUBE PO PRN ×2 (08:44)
[2019-12-02] MEDS: FAMOTIDINE INJ/PF 20 MG/2 ML SDV IV SCH ×2 (10:33→21:31)
[2019-12-02] MEDS: DOCUSATE SODIUM 100 MG CAPSULE PO SCH ×2 (10:33→17:27)
[2019-12-02] MEDS: FLUTICASONE NASAL SPRAY 50 MCG/SPRY 120 SPRAY/16 GM NASL SCH ×2 (10:33→21:31)
[2019-12-02] MEDS: INSULIN REG, HUMAN 100 UNIT/ML 3 ML VIAL (PYX) SUBCUT SCH ×3 (12:12→23:58)
[2019-12-03] MEDS: TRIMETHOPRIM IV SCH ×2 (00:08→06:10)
[2019-12-03] MEDS: SULFAMETHOXAZOLE IV SCH ×2 (00:08→06:10)
[2019-12-03] MEDS: WATER IV SCH ×2 (00:08→06:10)
[2019-12-03] MEDS: DEXTROSE 5% IV SCH ×2 (00:08→06:10)
[2019-12-03] MEDS: INSULIN REG, HUMAN 100 UNIT/ML 3 ML VIAL (PYX) SUBCUT SCH (06:15)
[2019-12-03 08:46] VITALS: BP 138/84
--- NOTE | 2019-12-03 08:49 | PDOC PROGRESS REPORT ---
Subjective Progress Note for:: 12/03/19 Subjective:: No complaints. Feels well. Reason For Visit: BACK ABSCESS Physical Exam Vital Signs: Temp Pulse Resp BP Pulse Ox 97.4 F 98 16 138/84 H 98 12/03/19 08:40 12/03/19 08:40 12/03/19 08:40 12/03/19 08:40 12/03/19 08:40 Intake & Output 12/02/19 12/03/19 12/04/19 06:59 06:59 06:59 Intake Total 2091 2556 Output Total 2920 1500 Balance -829 1056 Weight 114.9 kg 115.9 kg General appearance: PRESENT: no acute distress, cooperative Respiratory exam: PRESENT: clear to auscultation alma delia Cardiovascular exam: PRESENT: RRR Skin exam: PRESENT: other - Back wound with wound VAC. No surrounding erythema. Results Laboratory Results: 12/01/19 04:37 12/01/19 04:37 11/30/19 20:31 Back - Right Side Gram Stain - Final 11/30/19 20:31 Back - Right Side Wound Culture - Final Staphylococcus Aureus No Anaerobic Organisms Assessment & Plan - Diagnosis (1) Abscess of back Is this a current diagnosis for this admission?: Yes Plan: Looks good status post excisional debridement. Wound VAC in place. Home health arranged for wound VAC management. Will discharge patient home today.
--- NOTE | 2019-12-03 08:58 | PDOC DISCHARGE SUMMARY ---
General - Admit/Disc Date/PCP Admission Date/Primary Care Provider: 12/02/19 11:50 ARINA AGUIRRE MD Discharge Date: 12/03/19 - Discharge Diagnosis Final Diagnosis: Large abscess on the back. - Assessment Summary: Patient underwent excisional debridement of his large back abscess. He did well postoperatively. The wound appears clean and a wound VAC was placed. The cultures grew out staph aureus. Patient is encouraged to stay active at home but avoid strenuous activity. Patient is to continue his wound VAC at home and have it changed by home health every 3 days. He is to follow-up at the wound care clinic in 1 to 2 weeks. He may resume his home medications. Additional medication is Keflex 500 mg 4 times daily for 5 days. - Additional Information Resuscitation Status: Full Code Discharge Diet: Cardiac Discharge Activity: Activity As Tolerated Referrals: ARINA AGUIRRE MD [Primary Care Provider] - Follow up as needed Prescriptions: Cephalexin Monohydrate [Keflex 500 mg Capsule] 500 mg PO QID #20 capsule Home Medications: Acetaminophen [Tylenol 325 mg Tablet] 650 mg PO Q8HP PRN 11/30/19 Aspirin [Ecotrin 81 mg EC Tablet] 81 mg PO DAILY 11/30/19 Fluticasone Propionate [Flonase Nasal [place] 50 Mcg/[place] 16 gm] 1 spray NAREB Q12 11/30/19 Gabapentin 300 mg PO Q8 11/30/19 Losartan Potassium 50 mg PO DAILY 11/30/19 Multivitamin [Tab-A-Jessica (Multiple Vitamin) Tablet] 1 tab PO DAILY 11/30/19 Naproxen 500 mg PO Q12 11/30/19 Pravastatin Sodium 20 mg PO QHS 11/30/19 Cephalexin Monohydrate [Keflex 500 mg Capsule] 500 mg PO QID #20 capsule 12/03/19 History of Present Illiness History of Present Illness: JUAN LUIS HALL is a 74 year old male Physical Exam Vital Signs: Temp Pulse Resp BP Pulse Ox 97.4 F 98 16 138/84 H 98 12/03/19 08:40 12/03/19 08:40 12/03/19 08:40 12/03/19 08:40 12/03/19 08:40 Intake & Output 12/02/19 12/03/19 12/04/19 06:59 06:59 06:59 Intake Total 2345 1236 Output Total 7186 1783 Balance -829 1056 Weight 114.9 kg 115.9 kg Results Laboratory Results: WBC 13.6 10^3/uL (4.0-10.5) H 12/01/19 04:37 RBC 4.14 10^6/uL (4.35-5.55) L 12/01/19 04:37 Hgb 12.8 g/dL (13.5-17.0) L 12/01/19 04:37 Hct 37.7 % (37.9-51.0) L 12/01/19 04:37 MCV 91 fl (80-97) 12/01/19 04:37 MCH 30.9 pg (27.0-33.4) 12/01/19 04:37 MCHC 33.9 g/dL (32.0-36.0) 12/01/19 04:37 RDW 13.6 % (11.5-14.0) 12/01/19 04:37 Plt Count 301 10^3/uL (150-450) 12/01/19 04:37 Lymph % (Auto) 6.9 % (13-45) L 12/01/19 04:37 White % (Auto) 1.6 % (3-13) L 12/01/19 04:37 Eos % (Auto) 0.0 % (0-6) 12/01/19 04:37 Baso % (Auto) 0.4 % (0-2) 12/01/19 04:37 Absolute Neuts (auto) 12.4 10^3/uL (1.7-8.2) H 12/01/19 04:37 Absolute Lymphs (auto) 0.9 10^3/uL (0.5-4.7) 12/01/19 04:37 Absolute Monos (auto) 0.2 10^3/uL (0.1-1.4) 12/01/19 04:37 Absolute Eos (auto) 0.0 10^3/uL (0.0-0.6) 12/01/19 04:37 Absolute Basos (auto) 0.1 10^3/uL (0.0-0.2) 12/01/19 04:37 Seg Neutrophils % 91.1 % (42-78) H 12/01/19 04:37 Sodium 137.5 mmol/L (137-145) 12/01/19 04:37 Potassium 4.8 mmol/L (3.6-5.0) 12/01/19 04:37 Chloride 104 mmol/L (98-107) 12/01/19 04:37 Carbon Dioxide 26 mmol/L (22-30) 12/01/19 04:37 Anion Gap 8 (5-19) 12/01/19 04:37 BUN 18 mg/dL (7-20) 12/01/19 04:37 Creatinine 0.93 mg/dL (0.52-1.25) 12/01/19 04:37 Est GFR ( Amer) > 60 (>60) 12/01/19 04:37 Est GFR (MDRD) Non-Af > 60 (>60) 12/01/19 04:37 Glucose 160 mg/dL (75-110) H 12/01/19 04:37 POC Glucose 94 mg/dL (70-110) 12/03/19 06:14 Calcium 9.6 mg/dL (8.4-10.2) 12/01/19 04:37 SARS-CoV-2 (PCR) NEGATIVE (NEGATIVE) 11/30/19 17:45
[2019-12-03] MEDS: DOCUSATE SODIUM 100 MG CAPSULE PO SCH (09:18)
[2019-12-03] MEDS: FAMOTIDINE INJ/PF 20 MG/2 ML SDV IV SCH (09:19)
[2019-12-03] MEDS: FLUTICASONE NASAL SPRAY 50 MCG/SPRY 120 SPRAY/16 GM NASL SCH (09:19)
== END 2019-12-03 10:45 | disposition home health service (06) | DRG 572 ==
LOC: ER 14:20 → OROUT 19:45 → 3W 21:35 → OROUT 21:54 → 3W 21:56 → INTOOBSV 21:56 → OBSVTOIN 12-02 11:50
PROVIDERS: ADMIT Surgery; ATTEND Surgery
PROC: 0JB70ZZ Excision of Back Subcutaneous Tissue and Fascia, Open Approach (ICD-10-PCS; principal; 2019-11-30 18:00)
DX: L02.212 Cutaneous abscess of back [any part, except buttock and flank] (principal); L03.312 Cellulitis of back [any part except buttock and flank]; E78.00 Pure hypercholesterolemia, unspecified; I10 Essential (primary) hypertension; M19.90 Unspecified osteoarthritis, unspecified site; B95.61 Methicillin susceptible Staphylococcus aureus infection as the cause of diseases classified elsewhere; Z03.818 Encounter for observation for suspected exposure to other biological agents ruled out
CPT/HCPCS: 300; 36415; 80048; 82962; 85025; 87040; 87070; 87075; 87077; 87186; 87205; 87635; 88304; 96365; 96366; 96375; 99140; 99284; C9803; G0378; J0330; J1100; J1170; J2250; J2370; J2405; J2704; J3010; J3480; J3490; J7030; J7060; S0028

== ENCOUNTER → 2020-02-15 | Outpatient (CLI) | payer MEDICARE, OTHER ==
[2020-02-15 10:21] LABS: ALBUMIN 4.3 g/dL (3.5-5.0); ALKALINE PHOSPHATASE 80 U/L (38-126); ANION GAP 10 (5-19); ASPARTATE AMINO TRANSFERASE 23 U/L (17-59); BILIRUBIN,DIRECT 0.3 mg/dL (0.0-0.4); BILIRUBIN,TOTAL 0.4 mg/dL (0.2-1.3); BLOOD UREA NITROGEN 23 mg/dL (7-20); CALCIUM 10.1 mg/dL (8.4-10.2); CARBON DIOXIDE 31 mmol/L (22-30); CHLORIDE 103 mmol/L (98-107); CHOLESTEROL 192.26 mg/dL (0-200); GLUCOSE 103 mg/dL (75-110); POTASSIUM 4.8 mmol/L (3.6-5.0); TOTAL PROTEIN 7.2 g/dL (6.3-8.2); TRIGLYCERIDES 228 mg/dL (<150)
[2020-02-15 10:32] LABS: DIRECT LDL 129 mg/dL (<100)
[2020-02-15 10:41] LABS: VLDL CHOLESTEROL 45.6 mg/dL (10-31)
== END ==
LOC: OD 08:58
PROVIDERS: ATTEND Family Medicine
DX: E55.9 Vitamin D deficiency, unspecified (principal); I10 Essential (primary) hypertension; E78.5 Hyperlipidemia, unspecified
CPT/HCPCS: 36415; 80053; 80061; 82306

== ENCOUNTER 2020-04-25 14:52 | Inpatient (IN) | payer MEDICARE, OTHER ==
--- NOTE | 2020-04-25 16:38 | RADIOLOGY REPORT (SQ) ---
EXAM DESCRIPTION: CHEST SINGLE VIEW IMAGES COMPLETED DATE/TIME: 04/25/2020 4:31 pm REASON FOR STUDY: SOB COMPARISON: None. EXAM PARAMETERS: NUMBER OF VIEWS: One view. TECHNIQUE: An AP view of the chest was obtained. RADIATION DOSE: NA LIMITATIONS: None. FINDINGS: LUNGS AND PLEURA: Parenchymal opacities in the lateral aspect of the left lung and in the mid right lung. There is no sizable pleural effusion or pneumothorax. MEDIASTINUM AND HILAR STRUCTURES: No mediastinal or hilar contour abnormality. HEART AND VASCULAR STRUCTURES: The cardiac silhouette is enlarged. BONES: No acute findings. HARDWARE: None in the chest. OTHER: No other finding. IMPRESSION: Bilateral multifocal parenchymal opacities concerning for multifocal pneumonia. TECHNICAL DOCUMENTATION: JOB ID: [id number] 2010 [employer]- All Rights Reserved Reading location - IP/workstation name: [email or web address]
[2020-04-25] MEDS ORDERED: DEXAMETHASONE SOD PHOSPHATE INJ 4 MG/1 ML VIAL IV ONE (16:54)
[2020-04-25 17:16] LABS: ABSOLUTE LYMPHOCYTES (AUTO) 0.7 10^3/uL (0.5-4.7); ABSOLUTE MONOCYTES (AUTO) 0.7 10^3/uL (0.1-1.4); ABSOLUTE NEUT (AUTO) 11.2 10^3/uL (1.7-8.2); BASOPHILS % (AUTO) 0.1 % (0-2); HEMATOCRIT 40.4 % (37.9-51.0); HEMOGLOBIN 13.6 g/dL (13.5-17.0); LYMPHOCYTES % (AUTO) 5.2 % (13-45); MEAN CORPUSCULAR HEMOGLOBIN 30.2 pg (27.0-33.4); MEAN CORPUSCULAR HGB CONC 33.7 g/dL (32.0-36.0); MEAN CORPUSCULAR VOLUME 90 fl (80-97); MONOCYTES % (AUTO) 5.3 % (3-13); PLATELET COUNT 401 10^3/uL (150-450); RED BLOOD COUNT 4.51 10^6/uL (4.35-5.55); RED CELL DISTRIBUTION WIDTH 13.9 % (11.5-14.0); SEGMENTED NEUTROPHILS % (AUTO) 89.4 % (42-78); TOTAL CELLS COUNTED % (AUTO) 100 %; WHITE BLOOD COUNT 12.6 10^3/uL (4.0-10.5)
--- NOTE | 2020-04-25 17:16 | ER Document Report ---
ED General - General Chief Complaint: Shortness Of Breath Stated Complaint: SHORTNESS OF BREATH Time Seen by Provider: 04/25/20 16:03 Primary Care Provider: ARINA AGUIRRE MD [Primary Care Provider] - Follow up as needed TRAVEL OUTSIDE OF THE [place] IN LAST 30 DAYS: Yes - HPI Notes: Patient is a 75-year-old male with a history of hypertension, hyperlipidemia, prostate cancer who, who presents the emergency department for evaluation of increased shortness of breath. He started having cough and diarrhea on . He was diagnosed with Covid on Thursday. He started being more short of breath over the last 24 hours. EMS found him to be 81 to 83% on room air, he is not oxygen dependent at home. He denies any pain of any sort. He just feels weak, dyspneic with exertion. He has been taking his regular medications as prescribed. - Related Data Allergies/Adverse Reactions: No Known Allergies Allergy (Verified 11/30/19 15:39) Home Medications: losartan and pravastatin Past Medical History - General Information source: Patient - Social History Smoking Status: Former Smoker Frequency of alcohol use: None Drug Abuse: None Family History: Reviewed & Not Pertinent - Past Medical History Cardiac Medical History: Reports: Hx Hypercholesterolemia, Hx Hypertension Pulmonary Medical History: Denies: Hx Asthma, Hx Bronchitis, Hx COPD, Hx Pneumonia, Hx Tuberculosis Neurological Medical History: Denies: Hx Migraine, Hx Seizures Endocrine Medical History: Denies: Hx Diabetes Mellitus Type 1, Hx Diabetes Mellitus Type 2, Hx Hyperthyroidism, Hx Hypothyroidism Malignancy Medical History: Denies Hx Bone Cancer, Denies Hx Brain Cancer, Denies Hx Colorectal Cancer, Denies Hx Leukemia, Denies Hx Liver Cancer, Denies Hx Lung Cancer, Denies Hx Lymphoma, Denies Hx Pancreatic Cancer, Reports Hx Prostate Cancer, Denies Hx Renal (Kidney) Cancer, Denies Hx Skin Cancer GI Medical History: Denies: Hx Cirrhosis, Hx Crohn's Disease, Hx Diverticulitis, Hx Gastroesophageal Reflux Disease, Hx Hepatitis, Hx Hiatal Hernia, Hx Ulcerative Colitis Musculoskeletal Medical History: Reports Hx Arthritis, Denies Hx Fibromyalgia, Denies Hx Gout Psychiatric Medical History: Denies: Hx Attention Deficit Hyperactivity Disorder, Hx Bipolar Disorder, Hx Dementia, Hx Depression, Hx Personality Disorder, Hx Post Traumatic Stress Disorder, Hx Schizoaffective Disorder Traumatic Medical History: Denies: Hx Gunshot Wound, Hx Pneumothorax, Hx Traumatic Brain Injury Infectious Medical History: Reports: Hx MRSA. Denies: Hx Hepatitis Past Surgical History: Reports: Hx Cholecystectomy - Immunizations Hx Pneumococcal Vaccination: 01/23/19 Review of Systems - Review of Systems Constitutional: See HPI EENT: No symptoms reported Cardiovascular: No symptoms reported Respiratory: See HPI Gastrointestinal: See HPI Genitourinary: No symptoms reported Musculoskeletal: No symptoms reported Skin: No symptoms reported Neurological/Psychological: No symptoms reported Physical Exam - Vital signs Vitals: Resp Pulse Ox 22 H 91 L 04/25/20 15:02 04/25/20 15:02 - Notes Notes: Vital signs reviewed, please refer to chart. Head is normocephalic, atraumatic. Pupils equal round, reactive to light. Oral mucosa is moist with mild posterior pharyngeal erythema. Neck is supple without meningismus. Heart is regular rate and rhythm. Lungs reveal mild crackles bilaterally. Abdomen is soft, nontender, normoactive bowel sounds throughout. Extremities without cyanosis, clubbing. Posterior calves are nontender. Peripheral pulses are equal. Skin is warm and dry. Patient is awake, alert, neurological exam is nonfocal. Course - Re-evaluation Re-evalutation: 04/25/20 17:17 Patient presents to the emergency department for evaluation. Laboratory investigations were ordered. I am still awaiting them from the lab. He was placed on oxygen per nasal cannula, he is currently 92 to 94% on 4 L. He is not oxygen dependent at home. X-ray confirms bilateral patchy infiltrates consistent with Covid pneumonia. Patient was administered Decadron 6 mg IV. He is not wheezing. I spoke with Dr. Ponce, who agrees this patient will require admission. I spoke with Dr. Alonso about, who asks that further labs and imaging be done. He will come to the department to evaluate the patient. - Vital Signs Vital signs: Temp Pulse Resp BP Pulse Ox 98.9 F 20 109/77 93 04/25/20 15:08 04/25/20 17:01 04/25/20 17:01 04/25/20 17:01 - Laboratory Result Diagrams: 04/25/20 15:03 04/25/20 15:03 Laboratory results interpreted by me: 04/25/20 15:03 WBC 12.6 H Lymph % (Auto) 5.2 L Absolute Neuts (auto) 11.2 H Seg Neutrophils % 89.4 H - Diagnostic Test Radiology reviewed: Reports reviewed Radiology results interpreted by me: 04/25/20 17:18 Chest X-Ray 04/25/20 15:52 IMPRESSION: Bilateral multifocal parenchymal opacities concerning for multifocal pneumonia. - EKG Interpretation by Me Additional EKG results interpreted by me: 04/25/20 17:2Sinus mechanism with rate of 70 bpm. Left axis deviation. Mild IVCD. No acute ST changes concerning for ischemia or infarction. No old studies immediately available for comparison. Discharge - Discharge Clinical Impression: Pneumonia due to COVID-19 virus, Hypoxia Condition: Stable Disposition: ADMITTED INPATIENT Admitting Provider: Jacoby (Hospitalist) Unit Admitted: IMCU Referrals: ARINA AGUIRRE MD [Primary Care Provider] - Follow up as needed
[2020-04-25] MEDS ORDERED: ONDANSETRON HCL INJ/PF 4 MG/2 ML SDV IV PRN (17:18)
[2020-04-25] MEDS ORDERED: ACETAMINOPHEN 325 MG TABLET PO PRN (17:18)
[2020-04-25] MEDS ORDERED: NORMAL SALINE 1000 ML 1,000 ML IV PRN (17:18)
[2020-04-25 17:22] LABS: ALKALINE PHOSPHATASE 89 U/L (38-126); ANION GAP 10 (5-19); ASPARTATE AMINO TRANSFERASE 115 U/L (17-59); BILIRUBIN,DIRECT 0.4 mg/dL (0.0-0.4); BILIRUBIN,TOTAL 0.9 mg/dL (0.2-1.3); BLOOD UREA NITROGEN 25 mg/dL (7-20); CALCIUM 9.2 mg/dL (8.4-10.2); CARBON DIOXIDE 31 mmol/L (22-30); CHLORIDE 100 mmol/L (98-107); GLUCOSE 104 mg/dL (75-110); POTASSIUM 4.2 mmol/L (3.6-5.0); TOTAL PROTEIN 7.4 g/dL (6.3-8.2)
[2020-04-25 17:50] LABS: INTERNATIONAL RATION (INR) 1.04; PROTHROMBIN TIME 13.8 SEC (11.4-15.4)
[2020-04-25 17:53] LABS: D-DIMER 0.46 ug/mL (0.00-0.50)
--- NOTE | 2020-04-25 18:12 | PDOC H&P ---
History of Present Illness Admission Date/PCP: 04/25/20 17:28 ARINA AGUIRRE MD Patient complains of: Came in with complaints of shortness of breath 1 day duration History of Present Illness: JUAN LUIS HALL is a 75 year old male With history of morbid obesity, hypertension, hyperlipidemia came with complaints of shortness of breath of days duration. Denies any associated symptoms like a cough cold headache dizzy spells, fever denies any nausea vomiting diarrhea or abdominal pain. He went to medical office in [place] he thinks he got the coronavirus from there. His is also positive and she is stable at home. Patient agreed to stay in the hospital for further management and he is a full code. Labs are pending at this time. CT of the chest is pending at this time. Patient was tested at urgent care center across the hospital 2 days ago and was positive for Covid. Past Medical History Cardiac Medical History: Reports: Hyperlipidema, Hypertension Pulmonary Medical History: Denies: Asthma, Bronchitis, Chronic Obstructive Pulmonary Disease (COPD), Intubation, Pneumonia, Respiratory Failure, Sleep Apnea, Tuberculosis Neurological Medical History: Denies: Migraine, Seizures Endocrine Medical History: Denies: Diabetes Mellitus Type 1, Diabetes Mellitus Type 2, Hyperthyroidism, Hypothyroidism Malignancy Medical History: Denies: Bone Cancer, Brain Cancer, Breast Cancer, Cervical Cancer, Colorectal Cancer, Leukemia, Liver Cancer, Lung Cancer, Lymphoma, Ovarian Cancer, Pancreatic Cancer, Renal (Kidney) Cancer, Skin Cancer GI Medical History: Denies: Cirrhosis, Crohn's Disease, Diverticulitis, Gastroesophageal Reflux Disease, Hepatitis, Hiatal Hernia, Ulcerative Colitis Musculoskeltal Medical History: Reports: Arthritis Denies: Fibromyalgia, Gout Psychiatric Medical History: Denies: Attention Deficit Hyperactivity Disorder, Bipolar Disorder, Dementia, Depression, Personality Disorder, Post Traumatic Stress Disorder, Schizoaffective Disorder Traumatic Medical History: Denies: Gunshot Wound, Pneumothorax, Traumatic Brain Injury Hematology: Denies: Anemia, Hemophilia, Sickle Cell Disease, Bleeding Tendencies, Heparin Induced Thrombocytopenia, Neutropenia Infectious Medical History: Reports: Methicillin-Resistant Staph Aureus Past Surgical History Past Surgical History: Reports: Cholecystectomy Social History Smoking Status: Former Smoker Frequency of Alcohol Use: None Hx Recreational Drug Use: No Drugs: None Hx Prescription Drug Abuse: No - Advance Directive Resuscitation Status: Full Code Family History Family History: Reviewed & Not Pertinent Parental Family History Reviewed: Yes - Family history of diabetes mellitus Children Family History Reviewed: Yes Sibling(s) Family History Reviewed.: Yes Medication/Allergy Home Medications: Acetaminophen [Tylenol 325 mg Tablet] 650 mg PO Q8HP PRN 11/30/19 Aspirin [Ecotrin 81 mg EC Tablet] 81 mg PO DAILY 11/30/19 Fluticasone Propionate [Flonase Nasal [place] 50 Mcg/[place] 16 gm] 1 spray NAREB Q12 11/30/19 Gabapentin 300 mg PO Q8 11/30/19 Losartan Potassium 50 mg PO DAILY 11/30/19 Multivitamin [Tab-A-Jessica (Multiple Vitamin) Tablet] 1 tab PO DAILY 11/30/19 Naproxen 500 mg PO Q12 11/30/19 Pravastatin Sodium 20 mg PO QHS 11/30/19 Cephalexin Monohydrate [Keflex 500 mg Capsule] 500 mg PO QID #20 capsule 12/03/19 Allergies/Adverse Reactions: No Known Allergies Allergy (Verified 11/30/19 15:39) Review of Systems Constitutional: ABSENT: fever(s), night sweats, weakness Eyes: ABSENT: visual disturbances Ears: ABSENT: hearing changes Nose, Mouth, and Throat: ABSENT: mouth pain, sore throat Cardiovascular: ABSENT: dyspnea on exertion, edema, orthropnea Respiratory: PRESENT: dyspnea Gastrointestinal: ABSENT: abdominal pain, constipation, diarrhea, hematemesis, hematochezia, nausea, vomiting Genitourinary: ABSENT: dysuria, hematuria Musculoskeletal: ABSENT: joint swelling Integumentary: ABSENT: rash, wounds Neurological: ABSENT: abnormal gait, abnormal speech, confusion, dizziness, focal weakness, syncope Psychiatric: ABSENT: anxiety, depression, homidical ideation, suicidal ideation Endocrine: ABSENT: cold intolerance, heat intolerance, polydipsia, polyuria Hematologic/Lymphatic: ABSENT: easy bleeding, easy bruising Physical Exam Vital Signs: Temp Pulse Resp BP Pulse Ox 98.9 F 20 109/77 93 04/25/20 15:08 04/25/20 17:01 04/25/20 17:01 04/25/20 17:01 Intake & Output 04/24/20 04/25/20 04/26/20 06:59 06:59 06:59 Weight 120.202 kg General appearance: PRESENT: cooperative, mild distress, morbidly obese Head exam: PRESENT: atraumatic Eye exam: PRESENT: PERRLA Ear exam: PRESENT: normal external ear exam Mouth exam: PRESENT: neck supple Teeth exam: PRESENT: poor dentation Neck exam: ABSENT: carotid bruit, JVD, lymphadenopathy, thyromegaly Respiratory exam: PRESENT: decreased breath sounds, wheezes Cardiovascular exam: PRESENT: RRR. ABSENT: diastolic murmur, rubs, systolic murmur GI/Abdominal exam: PRESENT: normal bowel sounds, soft. ABSENT: distended, guarding, mass, organolmegaly, rebound, tenderness Rectal exam: PRESENT: deferred Extremities exam: PRESENT: full ROM. ABSENT: calf tenderness, clubbing, pedal edema Neurological exam: PRESENT: alert, awake, oriented to person, oriented to place, oriented to time, oriented to situation, CN II-XII grossly intact. ABSENT: motor sensory deficit Psychiatric exam: PRESENT: appropriate affect, normal mood. ABSENT: homicidal ideation, suicidal ideation Results Laboratory Results: 04/25/20 15:03 04/25/20 15:03 04/25/20 04/25/20 15:03 15:03 WBC 12.6 H RBC 4.51 Hgb 13.6 Hct 40.4 MCV 90 MCH 30.2 MCHC 33.7 RDW 13.9 Plt Count 401 Seg Neutrophils % 89.4 H Sodium 140.5 Potassium 4.2 Chloride 100 Carbon Dioxide 31 H Anion Gap 10 BUN 25 H Creatinine 1.09 Est GFR ( Amer) > 60 Glucose 104 Calcium 9.2 Total Bilirubin 0.9 AST 115 H Alkaline Phosphatase 89 Total Protein 7.4 Albumin 4.0 Impressions: Chest X-Ray 04/25/20 15:52 IMPRESSION: Bilateral multifocal parenchymal opacities concerning for multifocal pneumonia. Assessment and Plan - Diagnosis (1) Pneumonia due to COVID-19 virus Is this a current diagnosis for this admission?: Yes Plan: 04/25/[id number]-eec[age]-old male tested positive for Covid 2 days ago came in with shortness of breath requiring oxygen supplementations. Acute hypoxic respiratory failure most likely secondary to COVID-19 pneumonia. Patient was started on dexamethasone, Lovenox treatment dose, ivermectin. GI prophylaxis initiated. To provide CPAP at bedtime. To continue to provide oxygen supplementations, DuoNeb nebulizations every 4 as needed. Daily ferritin, ESR, CRP, procalcitonin, D-dimer levels will be requested. Is also started on IV Rocephin, Zithromax, vitamin D, zinc sulfate. (2) Acute and chronic respiratory failure with hypoxia Is this a current diagnosis for this admission?: Yes Plan: 04/25/2020-patient admitted with acute hypoxic respiratory failure with hypoxia. On 3 L of oxygen at the time of examination pulse ox is around 93%. Hypoxic respiratory failure most likely secondary to COVID-19 pneumonia. (3) Obesity (BMI 30-39.9) Is this a current diagnosis for this admission?: No Plan: 04/25/2020-patient BMI is more than 35. Diet exercise weight loss lifestyle modification discussed with the patient. Patient also has sleep apnea and he uses CPAP at night. Orders for CPAP placed. (4) HTN (hypertension) Is this a current diagnosis for this admission?: No Plan: 04/25/2020-patient has history of chronic essential hypertension to resume his home medications. He will be on low-sodium diet. - Time Anticipated Discharge Disposition: Home, Self Care Anticipated Discharge Timeframe: 5 days
[2020-04-25 18:15] LABS: C-REACTIVE PROTEIN 221.6 mg/L (<10.0)
[2020-04-25 18:46] LABS: A TYPE INFLUENZA AG NEGATIVE (NEGATIVE); B INFLUENZA AG NEGATIVE (NEGATIVE)
[2020-04-25] MEDS: CEFTRIAXONE 1 GM/D5W RTU 1 GM/50 ML RTUPB IV SCH (18:49)
--- NOTE | 2020-04-25 19:06 | EKG REPORT ---
SEVERITY:- OTHERWISE NORMAL ECG - SINUS RHYTHM BORDERLINE LEFT AXIS DEVIATION : Confirmed by: Israel Morales MD 25-Apr-2020 19:06:12
[2020-04-25] MEDS ORDERED: IVERMECTIN 3 MG TABLET PO ONE (20:00)
--- NOTE | 2020-04-25 20:00 | RADIOLOGY REPORT (SQ) ---
EXAM DESCRIPTION: CTA CHEST IMAGES COMPLETED DATE/TIME: 04/25/2020 7:47 pm REASON FOR STUDY: r/o PE COMPARISON: None. TECHNIQUE: CT scan of the chest performed using helical scanning technique with dynamic intravenous contrast injection. Images reviewed with lung, soft tissue and bone windows. Reconstructed coronal and sagittal MPR images reviewed. Additional 3 dimensional post-processing performed to develop Maximal Intensity Projection images ([place] P). All images stored on PACS. All CT scanners at this facility use dose modulation, iterative reconstruction, and/or weight based d osing when appropriate to reduce radiation dose to as low as reasonably achievable (ALARA). [facility]: Dose Right [facility]: CareDose [facility]: Dose Right [facility]: Teradose 4D [facility]: Quemulus CONTRAST TYPE AND DOSE: contrast/concentration: Isovue 350.00 mmol/ml; Total Contrast Delivered: 75. 0 ml; Total Saline Delivered: 75.0 ml Contrast bolus adequate for pulmonary arteries and aorta. RENAL FUNCTION: BUN 25 creatinine 1.09 RADIATION DOSE: CT Rad equipment meets quality standard of care and radiation dose reduction techniq ues were employed. CTDIvol: 19.8 - 31.2 mGy. DLP: 1130 mGy-cm. . LIMITATIONS: None. FINDINGS: LUNGS AND PLEURA: Extensive, patchy ground-glass infiltrates bilaterally. Right slightly more than left. No pleural effusion. Calcified granuloma in the right lung on image 56. AORTA AND GREAT VESSELS: No aneurysm. No dissection. HEART: No pericardial effusion. No significant coronary artery calcifications. PULMONARY ARTERIES: No emboli visualized in the main pulmonary arteries or the segmental branches. HILAR AND MEDIASTINAL STRUCTURES: No identified masses or abnormal nodes. HARDWARE: None in the chest. UPPER ABDOMEN: No significant findings. Limited exam. THYROID AND OTHER SOFT TISSUES: No masses. No adenopathy. BONES: No acute or significant finding. 3D MIPS: Confirm above findings. OTHER: No other significant finding. IMPRESSION: 1. There is no pulmonary embolus. There is no aortic aneurysm or dissection. 2. There are extensive, patchy ground-glass infiltrates bilaterally suggesting an atypical infectiou s/ inflammatory process. Has the patient been tested for COVID-19? COMMENT: Quality ID # [id number]: Final reports with documentation of one or more dose reduction techniques (e.g., Automated exposure control, adjustment of the mA and/or kV according to patient size, use of iterative reconstruction technique) TECHNICAL DOCUMENTATION: JOB ID: [id number] 2010 [employer] All Rights Reserved Reading location - IP/workstation name: [email or web address]
[2020-04-25 22:21] LABS: APPEARANCE,URINE SLIGHTLY-CLOUDY; BILIRUBIN,URINE NEGATIVE (NEGATIVE); COLOR,URINE YELLOW; GLUCOSE, URINE NEGATIVE (NEGATIVE); KETONES,URINE NEGATIVE (NEGATIVE); LEUKOCYTE ESTERASE,URINE NEGATIVE (NEGATIVE); NITRITE,URINE NEGATIVE (NEGATIVE); PROTEIN,URINE 30 mg/dL (NEGATIVE); URINE SPECIFIC GRAVITY 1.057
[2020-04-25] MEDS ORDERED: AZITHROMYCIN INJ 500 MG VIAL IV ONE (22:53)
[2020-04-25] MEDS: AZITHROMYCIN 500 MG in DEXTROSE 5%-WATER 250 ML IV SCH (22:56)
[2020-04-25] MEDS: ENOXAPARIN SODIUM INJ 120 MG/0.8 ML DISP.SYRIN SUBCUT SCH (22:56)
[2020-04-26 06:47] LABS: APPEARANCE,URINE CLEAR; BILIRUBIN,URINE NEGATIVE (NEGATIVE); COLOR,URINE YELLOW; GLUCOSE, URINE 50 mg/dL (NEGATIVE); KETONES,URINE NEGATIVE (NEGATIVE); LEUKOCYTE ESTERASE,URINE NEGATIVE (NEGATIVE); NITRITE,URINE NEGATIVE (NEGATIVE); PROTEIN,URINE 30 mg/dL (NEGATIVE); URINE SPECIFIC GRAVITY 1.048; UROBILINOGEN,URINE NEGATIVE mg/dL (<2.0)
[2020-04-26 07:38] LABS: ABSOLUTE LYMPHOCYTES (AUTO) 0.6 10^3/uL (0.5-4.7); ABSOLUTE MONOCYTES (AUTO) 0.4 10^3/uL (0.1-1.4); ABSOLUTE NEUT (AUTO) 6.8 10^3/uL (1.7-8.2); BASOPHILS % (AUTO) 0.2 % (0-2); HEMATOCRIT 37.8 % (37.9-51.0); HEMOGLOBIN 13.1 g/dL (13.5-17.0); LYMPHOCYTES % (AUTO) 8.3 % (13-45); MEAN CORPUSCULAR HEMOGLOBIN 30.8 pg (27.0-33.4); MEAN CORPUSCULAR HGB CONC 34.5 g/dL (32.0-36.0); MEAN CORPUSCULAR VOLUME 89 fl (80-97); PLATELET COUNT 401 10^3/uL (150-450); RED BLOOD COUNT 4.24 10^6/uL (4.35-5.55); RED CELL DISTRIBUTION WIDTH 13.8 % (11.5-14.0); SEGMENTED NEUTROPHILS % (AUTO) 86.5 % (42-78); TOTAL CELLS COUNTED % (AUTO) 100 %; WHITE BLOOD COUNT 7.8 10^3/uL (4.0-10.5)
[2020-04-26 08:12] LABS: ALBUMIN 3.7 g/dL (3.5-5.0); ALKALINE PHOSPHATASE 87 U/L (38-126); ANION GAP 11 (5-19); ASPARTATE AMINO TRANSFERASE 112 U/L (17-59); BILIRUBIN,DIRECT 0.3 mg/dL (0.0-0.4); BILIRUBIN,TOTAL 0.5 mg/dL (0.2-1.3); BLOOD UREA NITROGEN 29 mg/dL (7-20); CALCIUM 9.3 mg/dL (8.4-10.2); CARBON DIOXIDE 27 mmol/L (22-30); CHLORIDE 105 mmol/L (98-107); GLUCOSE 126 mg/dL (75-110); POTASSIUM 4.5 mmol/L (3.6-5.0); TOTAL PROTEIN 7.1 g/dL (6.3-8.2)
--- NOTE | 2020-04-26 08:26 | PDOC PROGRESS REPORT ---
Subjective Date:: 04/26/20 Subjective:: 75 year old male With history of morbid obesity, hypertension, hyperlipidemia came with complaints of shortness of breath of days duration. Denies any associated symptoms like a cough cold headache dizzy spells, fever denies any nausea vomiting diarrhea or abdominal pain. He went to medical office in [place] he thinks he got the coronavirus from there. His is also positive and she is stable at home. Patient agreed to stay in the hospital for further management and he is a full code. Labs are pending at this time. CT of the chest is pending at this time. Patient was tested at urgent care center across the hospital 2 days ago and was positive for Covid. 04/[id number]-dkpb-old male recently diagnosed COVID-19 positive came to the hospital with complaints of shortness of breath. Patient refused to use hospital CPAP last night because pressure is too high. Family is planning to bring the CPAP from home. Pulse ox is 92% 6 L this morning. Plan is to discon tinue IV fluids. Patient is receiving ivermectin. Reason For Visit: COVID 19 Physical Exam Vital Signs: Temp Pulse Resp BP Pulse Ox 97.3 F 76 24 H 114/68 92 04/26/20 07:21 04/26/20 07:00 04/26/20 03:04 04/26/20 03:04 04/26/20 03:04 Intake & Output 04/25/20 04/26/20 04/27/20 06:59 06:59 06:59 Intake Total 1030 Output Total 0 Balance 1030 Weight 135 kg General appearance: PRESENT: no acute distress, morbidly obese Head exam: PRESENT: atraumatic Eye exam: PRESENT: PERRLA Mouth exam: PRESENT: moist, tongue midline Teeth exam: PRESENT: poor dentation Neck exam: ABSENT: carotid bruit, JVD, lymphadenopathy, thyromegaly Respiratory exam: PRESENT: decreased breath sounds Cardiovascular exam: PRESENT: RRR. ABSENT: diastolic murmur, rubs, systolic murmur GI/Abdominal exam: PRESENT: normal bowel sounds, soft. ABSENT: distended, guarding, mass, organolmegaly, rebound, tenderness Rectal exam: PRESENT: deferred Extremities exam: PRESENT: full ROM. ABSENT: calf tenderness, clubbing, pedal edema Neurological exam: PRESENT: alert, awake, oriented to person, oriented to place, oriented to time, oriented to situation, CN II-XII grossly intact. ABSENT: m otor sensory deficit Psychiatric exam: PRESENT: appropriate affect, normal mood. ABSENT: homicidal ideation, suicidal ideation Results Laboratory Results: 04/26/20 04:55 04/26/20 04:55 04/25/20 04/25/20 04/25/20 15:03 15:03 15:03 WBC 12.6 H RBC 4.51 Hgb 13.6 Hct 40.4 MCV 90 MCH 30.2 MCHC 33.7 RDW 13.9 Plt Count 401 Seg Neutrophils % 89.4 H Sodium 140.5 Potassium 4.2 Chloride 100 Carbon Dioxide 31 H Anion Gap 10 BUN 25 H Creatinine 1.09 Est GFR ( Amer) > 60 Glucose 104 Lactic Acid Calcium 9.2 Magnesium Ferritin Total Bilirubin 0.9 AST 115 H Alkaline Phosphatase 89 C-Reactive Protein 221.6 H Total Protein 7.4 Albumin 4.0 Urine Color Urine Appearance Urine pH Ur Specific [place] Urine Protein Urine Glucose (UA) Urine Ketones Urine Blood Urine Nitrite Ur Leukocyte Esterase Urine WBC (Auto) Urine RBC (Auto) Blood Type 04/25/20 04/25/20 04/25/20 15:03 17:44 21:55 WBC RBC Hgb Hct MCV MCH MCHC RDW Plt Count Seg Neutrophils % Sodium Potassium Chloride Carbon Dioxide Anion Gap BUN Creatinine Est GFR ( Amer) Glucose Lactic Acid 1.7 Calcium Magnesium Ferritin Total Bilirubin AST Alkaline Phosphatase C-Reactive Protein Total Protein Albumin Urine Color YELLOW Urine Appearance SLIGHTLY-CLOUDY Urine pH 5.0 Ur Specific [place] 1.057 Urine Protein 30 H Urine Glucose (UA) NEGATIVE Urine Ketones NEGATIVE Urine Blood NEGATIVE Urine Nitrite NEGATIVE Ur Leukocyte Esterase NEGATIVE Urine WBC (Auto) 2 Urine RBC (Auto) 3 Blood Type A NEGATIVE 04/26/20 04/26/20 04/26/20 04:45 04:55 04:55 WBC 7.8 RBC 4.24 L Hgb 13.1 L Hct 37.8 L MCV 89 MCH 30.8 MCHC 34.5 RDW 13.8 Plt Count 401 Seg Neutrophils % 86.5 H Sodium Potassium Chloride Carbon Dioxide Anion Gap BUN Creatinine Est GFR ( Amer) Glucose Lactic Acid Calcium Magnesium Ferritin 643.00 H Total Bilirubin AST Alkaline Phosphatase C-Reactive Protein Total Protein Albumin Urine Color YELLOW Urine Appearance CLEAR Urine pH 5.0 Ur Specific [place] 1.048 Urine Protein 30 H Urine Glucose (UA) 50 H Urine Ketones NEGATIVE Urine Blood NEGATIVE Urine Nitrite NEGATIVE Ur Leukocyte Esterase NEGATIVE Urine WBC (Auto) 2 Urine RBC (Auto) 1 Blood Type 04/26/20 04:55 WBC RBC Hgb Hct MCV MCH MCHC RDW Plt Count Seg Neutrophils % Sodium 142.9 Potassium 4.5 Chloride 105 Carbon Dioxide 27 Anion Gap 11 BUN 29 H Creatinine 1.12 Est GFR ( Amer) > 60 Glucose 126 H Lactic Acid Calcium 9.3 Magnesium 2.9 H Ferritin Total Bilirubin 0.5 AST 112 H Alkaline Phosphatase 87 C-Reactive Protein Total Protein 7.1 Albumin 3.7 Urine Color Urine Appearance Urine pH Ur Specific [place] Urine Protein Urine Glucose (UA) Urine Ketones Urine Blood Urine Nitrite Ur Leukocyte Esterase Urine WBC (Auto) Urine RBC (Auto) Blood Type 04/25/20 15:03 Creatine Kinase 110 Impressions: Chest/Abdomen CTA 04/25/20 00:00 IMPRESSION: 1. There is no pulmonary embolus. There is no aortic aneurysm or dissection. 2. There are extensive, patchy ground-glass infiltrates bilaterally suggesting an atypical infectious/ inflammatory process. Has the patient been tested for COVID-19? Chest X-Ray 04/25/20 15:52 IMPRESSION: Bilateral multifocal parenchymal opacities concerning for multifocal pneumonia. Assessment and Plan - Diagnosis (1) Pneumonia due to COVID-19 virus Is this a current diagnosis for this admission?: Yes Plan: 04/[id number]-old male tested positive for Covid 2 days ago came in with shortness of breath requiring oxygen supplementations. Acute hypoxic respiratory failure most likely secondary to COVID-19 pneumonia. Patient was started on dexamethasone, Lovenox treatment dose, ivermectin. GI prophylaxis initiated. To provide CPAP at bedtime. To continue to provide oxygen supplementations, DuoNeb nebulizations every 4 as needed. Daily ferritin, ESR, CRP, procalcitonin, D-dimer levels will be requested. Is also started on IV Rocephin, Zithromax, vitamin D, zinc sulfate. 04/[id number]-cowj-old male admitted with COVID-19 pneumonia associated with hypoxia. Ferritin level is 643, CRP is 221, ESR is 92. LFTs are elevated. D- dimer is 0.46. Plan to give another dose of ivermectin today. To continue dexamethasone. He patient received 1 unit of convulsant plasma. To continue to provide CPAP during the hospital stay. (2) Acute and chronic respiratory failure with hypoxia Is this a current diagnosis for this admission?: Yes Plan: 04/25/2020-patient admitted with acute hypoxic respiratory failure with hypoxia. On 3 L of oxygen at the time of examination pulse ox is around 93%. Hypoxic respiratory failure most likely secondary to COVID-19 pneumonia. 04/26/20-patient admitted with acute hypoxic respiratory failure with hypoxia. Requiring oxygen supplementations. Patient is not on oxygen supplementations at home. (3) Obesity (BMI 30-39.9) Is this a current diagnosis for this admission?: No Plan: 04/25/2020-patient BMI is more than 35. Diet exercise weight loss lifestyle modification discussed with the patient. Patient also has sleep apnea and he uses CPAP at night. Orders for CPAP placed. (4) HTN (hypertension) Is this a current diagnosis for this admission?: No Plan: 04/25/2020-patient has history of chronic essential hypertension to resume his home medications. He will be on low-sodium diet. 320-patient history of chronic essential hypertension. Blood pressure this morning 114/68. Stable. - Time Anticipated Discharge Disposition: Home, Self Care Anticipated Discharge Timeframe: within 72 hours
[2020-04-26] MEDS ORDERED: DEXAMETHASONE SOD PHOS INJ 10 MG/1 ML VIAL IV SCH (10:00)
[2020-04-26] MEDS ORDERED: AZITHROMYCIN INJ 500 MG VIAL IV SCH (10:00)
[2020-04-26] MEDS: ENOXAPARIN SODIUM INJ 120 MG/0.8 ML DISP.SYRIN SUBCUT SCH ×2 (10:55→21:03)
[2020-04-26] MEDS: ZINC SULFATE 220 MG CAPSULE PO SCH (10:55)
[2020-04-26] MEDS: CHOLECALCIFEROL (D3) 1,000 UNIT (25 MCG) TABLET PO SCH (10:55)
[2020-04-26] MEDS: PANTOPRAZOLE SODIUM 40 MG TABLET.DR PO SCH (10:55)
[2020-04-26] MEDS: DEXAMETHASONE SOD PHOSPHATE INJ 4 MG/1 ML VIAL IV SCH (11:17)
[2020-04-26] MEDS ORDERED: IVERMECTIN 3 MG TABLET PO ONE (12:00)
[2020-04-26] MEDS: CEFTRIAXONE 1 GM/D5W RTU 1 GM/50 ML RTUPB IV SCH (17:53)
[2020-04-26] MEDS: AZITHROMYCIN 500 MG in DEXTROSE 5%-WATER 250 ML IV SCH (21:03)
[2020-04-27 06:06] LABS: HEMATOCRIT 40.3 % (37.9-51.0); HEMOGLOBIN 13.8 g/dL (13.5-17.0); MEAN CORPUSCULAR HEMOGLOBIN 30.5 pg (27.0-33.4); MEAN CORPUSCULAR HGB CONC 34.1 g/dL (32.0-36.0); MEAN CORPUSCULAR VOLUME 90 fl (80-97); PLATELET COUNT 508 10^3/uL (150-450); RED CELL DISTRIBUTION WIDTH 13.6 % (11.5-14.0); WHITE BLOOD COUNT 11.9 10^3/uL (4.0-10.5)
--- NOTE | 2020-04-27 08:36 | RADIOLOGY REPORT (SQ) ---
EXAM DESCRIPTION: CHEST SINGLE VIEW IMAGES COMPLETED DATE/TIME: 04/27/2020 8:29 am REASON FOR STUDY: covid COMPARISON: AP view of the chest from 04/25/2020. EXAM PARAMETERS: NUMBER OF VIEWS: One view. TECHNIQUE: An AP view of the chest was obtained. RADIATION DOSE: NA LIMITATIONS: None. FINDINGS: LUNGS AND PLEURA: Unchanged appearance of the lungs and pleura. MEDIASTINUM AND HILAR STRUCTURES: Stable mediastinal and hilar contours. HEART AND VASCULAR STRUCTURES: Stable cardiac silhouette. BONES: No acute findings. HARDWARE: None in the chest. OTHER: No other finding. IMPRESSION: Unchanged radiographic appearance of the chest. TECHNICAL DOCUMENTATION: JOB ID: [id number] 2010 [employer]- All Rights Reserved Reading location - IP/workstation name: [email or web address]
[2020-04-27] MEDS: LEVALBUTEROL HCL NEB 0.63 MG/3 ML AMPUL NEB PRN (10:03)
[2020-04-27] MEDS: ZINC SULFATE 220 MG CAPSULE PO SCH (10:32)
[2020-04-27] MEDS: ENOXAPARIN SODIUM INJ 120 MG/0.8 ML DISP.SYRIN SUBCUT SCH ×2 (10:32→21:05)
[2020-04-27] MEDS: PANTOPRAZOLE SODIUM 40 MG TABLET.DR PO SCH (10:33)
[2020-04-27] MEDS: CHOLECALCIFEROL (D3) 1,000 UNIT (25 MCG) TABLET PO SCH (10:33)
[2020-04-27] MEDS: DEXAMETHASONE SOD PHOSPHATE INJ 4 MG/1 ML VIAL IV SCH (10:33)
[2020-04-27 12:14] LABS: APPEARANCE,URINE SLIGHTLY-CLOUDY; BILIRUBIN,URINE NEGATIVE (NEGATIVE); COLOR,URINE YELLOW; GLUCOSE, URINE NEGATIVE (NEGATIVE); KETONES,URINE NEGATIVE (NEGATIVE); LEUKOCYTE ESTERASE,URINE NEGATIVE (NEGATIVE); NITRITE,URINE NEGATIVE (NEGATIVE); PROTEIN,URINE NEGATIVE (NEGATIVE); URINE SPECIFIC GRAVITY 1.026
--- NOTE | 2020-04-27 15:18 | PDOC PROGRESS REPORT ---
Subjective Date:: 04/27/20 Subjective:: Patient is sitting up in the bed eating his lunch. He states that this is the f irst time that he has felt comfortable off of his CPAP. He overall feels like he is breathing a little easier. He denies fever or shaking chills today. No chest pain or heart palpitations. He still has a bit of a cough but it is improving. He has had no nausea or vomiting. His appetite is improving. No diarrhea. No urinary complaints Reason For Visit: COVID 19 Physical Exam Vital Signs: Temp Pulse Resp BP Pulse Ox 97.5 F 63 21 H 119/60 87 L 04/27/20 11:35 04/27/20 14:00 04/27/20 11:35 04/27/20 11:35 04/27/20 11:35 Intake & Output 04/26/20 04/27/20 04/28/20 06:59 06:59 06:59 Intake Total 1030 1322 Output Total 0 975 Balance 1030 347 Weight 135 kg 138.1 kg 138.1 kg General appearance: PRESENT: no acute distress, morbidly obese, well-developed, well-nourished Mouth exam: PRESENT: moist Respiratory exam: PRESENT: other - His lungs sound fairly clear. He somewhat diminished in the lower bases with some crackles bilaterally that are quite mild Cardiovascular exam: PRESENT: RRR, +S1, +S2 GI/Abdominal exam: PRESENT: normal bowel sounds, soft. ABSENT: guarding, rebound, rigid, tenderness Rectal exam: PRESENT: deferred Extremities exam: ABSENT: calf tenderness, pedal edema Musculoskeletal exam: PRESENT: ambulatory Neurological exam: PRESENT: alert, awake, oriented to person, oriented to place, oriented to time, oriented to situation Psychiatric exam: ABSENT: agitated, anxious Skin exam: PRESENT: dry, warm Results Laboratory Results: 04/27/20 05:06 04/26/20 04:55 04/25/20 04/27/20 04/27/20 17:44 05:06 05:06 WBC 11.9 H RBC 4.50 Hgb 13.8 Hct 40.3 MCV 90 MCH 30.5 MCHC 34.1 RDW 13.6 Plt Count 508 H Ferritin 591.00 H Urine Color Urine Appearance Urine pH Ur Specific [place] Urine Protein Urine Glucose (UA) Urine Ketones Urine Blood Urine Nitrite Ur Leukocyte Esterase Urine WBC (Auto) Urine RBC (Auto) Blood Type A NEGATIVE 04/27/20 11:30 WBC RBC Hgb Hct MCV MCH MCHC RDW Plt Count Ferritin Urine Color YELLOW Urine Appearance SLIGHTLY-CLOUDY Urine pH 5.0 Ur Specific [place] 1.026 Urine Protein NEGATIVE Urine Glucose (UA) NEGATIVE Urine Ketones NEGATIVE Urine Blood NEGATIVE Urine Nitrite NEGATIVE Ur Leukocyte Esterase NEGATIVE Urine WBC (Auto) 3 Urine RBC (Auto) 2 Blood Type 04/25/20 15:03 Creatine Kinase 110 Impressions: Chest/Abdomen CTA 04/25/20 00:00 IMPRESSION: 1. There is no pulmonary embolus. There is no aortic aneurysm or dissection. 2. There are extensive, patchy ground-glass infiltrates bilaterally suggesting an atypical infectious/ inflammatory process. Has the patient been tested for COVID-19? Chest X-Ray 04/27/20 07:50 IMPRESSION: Unchanged radiographic appearance of the chest. Assessment and Plan - Diagnosis (1) Acute and chronic respiratory failure with hypoxia Is this a current diagnosis for this admission?: Yes Plan: Patient is above his baseline oxygen requirements. He is improving and is comfortable off of the CPAP at this point. He will continue current IV antibiotics, ivermectin and supportive medications per COVID-19 protocol here at this hospital. Continue breathing treatments as well (2) Pneumonia due to COVID-19 virus Is this a current diagnosis for this admission?: Yes Plan: Currently on IV Rocephin and Zithromax. He is on ivermectin and dexamethasone. Also on vitamin and mineral supplementation per protocol. He is slowly improving and has not worsened today. (3) Morbid obesity with BMI of 40.0-44.9, adult Is this a current diagnosis for this admission?: Yes Plan: Dietary discretion is advised (4) RONAK on CPAP Is this a current diagnosis for this admission?: Yes Plan: The patient will continue CPAP at night and as needed during the day (5) HTN (hypertension) Is this a current diagnosis for this admission?: Yes Plan: Quite stable. Currently on no supplementation. (6) Elevated liver enzymes Is this a current diagnosis for this admission?: Yes Plan: Likely due to his acute viral infection. (7) Thrombocytosis Is this a current diagnosis for this admission?: Yes Plan: Reactive thrombocytosis. Stable - Plan Summary Summary: Overall the patient is stable. He is not requiring increased oxygen today and he symptomatically states that he is feeling better. He is at high risk of decompensation due to his multiple comorbidities and obesity. I believe he needs further monitoring and symptomatic treatment here in the hospital. - Time Time Spent with patient: 35 or more minutes Medications reviewed and adjusted accordingly: Yes Anticipated Discharge Disposition: Home, Self Care Anticipated Discharge Timeframe: Unknown
[2020-04-27] MEDS: CEFTRIAXONE 1 GM/D5W RTU 1 GM/50 ML RTUPB IV SCH (18:20)
[2020-04-27] MEDS: AZITHROMYCIN 500 MG in DEXTROSE 5%-WATER 250 ML IV SCH (21:05)
[2020-04-28 06:29] LABS: HEMATOCRIT 37.9 % (37.9-51.0); HEMOGLOBIN 13.1 g/dL (13.5-17.0); MEAN CORPUSCULAR HEMOGLOBIN 31.1 pg (27.0-33.4); MEAN CORPUSCULAR HGB CONC 34.6 g/dL (32.0-36.0); MEAN CORPUSCULAR VOLUME 90 fl (80-97); PLATELET COUNT 543 10^3/uL (150-450); RED BLOOD COUNT 4.22 10^6/uL (4.35-5.55); RED CELL DISTRIBUTION WIDTH 13.7 % (11.5-14.0); WHITE BLOOD COUNT 13.6 10^3/uL (4.0-10.5)
[2020-04-28 06:34] LABS: ALBUMIN 3.8 g/dL (3.5-5.0); ANION GAP 10 (5-19); BLOOD UREA NITROGEN 30 mg/dL (7-20); CALCIUM 9.1 mg/dL (8.4-10.2); CARBON DIOXIDE 28 mmol/L (22-30); CHLORIDE 106 mmol/L (98-107); GLUCOSE 77 mg/dL (75-110); PHOSPHORUS 3.3 mg/dL (2.5-4.5); POTASSIUM 4.4 mmol/L (3.6-5.0)
[2020-04-28 07:21] LABS: ABSOLUTE LYMPHOCYTES# (MANUAL) 2.4 10^3/uL (0.5-4.7); ABSOLUTE MONOCYTES # (MANUAL) 1.2 10^3/uL (0.1-1.4); BASOPHILS % (MANUAL) 0 % (0-2); EOSINOPHILS % (MANUAL) 0 % (0-6); LYMPHOCYTES % (MANUAL) 18 % (13-45); MONOCYTES % (MANUAL) 9 % (3-13); SEGMENTED NEUTROPHILS % (MAN) 73 % (42-78); TOTAL CELLS COUNTED 100
[2020-04-28 07:22] LABS: PLATELET COMMENT ADEQUATE; RBC MORPHOLOGY COMMENT NORMO-CYTIC/CHROMIC
[2020-04-28] MEDS: CHOLECALCIFEROL (D3) 1,000 UNIT (25 MCG) TABLET PO SCH (09:51)
[2020-04-28] MEDS: DEXAMETHASONE SOD PHOSPHATE INJ 4 MG/1 ML VIAL IV SCH (09:51)
[2020-04-28] MEDS: PANTOPRAZOLE SODIUM 40 MG TABLET.DR PO SCH (09:51)
[2020-04-28] MEDS: ZINC SULFATE 220 MG CAPSULE PO SCH (09:51)
[2020-04-28] MEDS: ENOXAPARIN SODIUM INJ 120 MG/0.8 ML DISP.SYRIN SUBCUT SCH (09:52)
--- NOTE | 2020-04-28 14:15 | PDOC PROGRESS REPORT ---
Subjective Date:: 04/28/20 Subjective:: NAEO Reason For Visit: COVID 19 Physical Exam Vital Signs: Temp Pulse Resp BP Pulse Ox 98.2 F 61 19 144/75 H 90 L 04/28/20 11:32 04/28/20 11:32 04/28/20 11:32 04/28/20 11:32 04/28/20 11:32 Intake & Output 04/27/20 04/28/20 04/29/20 06:59 06:59 06:59 Intake Total 1572 550 Output Total 975 700 Balance 597 -150 Weight 138.1 kg 136.4 kg General appearance: PRESENT: no acute distress, cooperative Eye exam: ABSENT: scleral icterus Mouth exam: PRESENT: moist Throat exam: ABSENT: post pharyngeal erythema Neck exam: ABSENT: JVD Respiratory exam: PRESENT: rhonchi, tachypnea Cardiovascular exam: PRESENT: RRR GI/Abdominal exam: PRESENT: normal bowel sounds, soft. ABSENT: tenderness Extremities exam: ABSENT: pedal edema Neurological exam: PRESENT: alert, awake Psychiatric exam: PRESENT: appropriate affect Skin exam: ABSENT: jaundice Results Laboratory Results: 04/28/20 04:47 04/28/20 04:47 04/28/20 04/28/20 04:47 04:47 WBC 13.6 H RBC 4.22 L Hgb 13.1 L Hct 37.9 MCV 90 MCH 31.1 MCHC 34.6 RDW 13.7 Plt Count 543 H Seg Neutrophils % Not Reportable Sodium 144.2 Potassium 4.4 Chloride 106 Carbon Dioxide 28 Anion Gap 10 BUN 30 H Creatinine 1.01 Est GFR ( Amer) > 60 Glucose 77 Calcium 9.1 Phosphorus 3.3 Magnesium 2.9 H Ferritin 513.00 H Albumin 3.8 04/25/20 15:03 Creatine Kinase 110 Impressions: Chest/Abdomen CTA 04/25/20 00:00 IMPRESSION: 1. There is no pulmonary embolus. There is no aortic aneurysm or dissection. 2. There are extensive, patchy ground-glass infiltrates bilaterally suggesting an atypical infectious/ inflammatory process. Has the patient been tested for COVID-19? Chest X-Ray 04/27/20 07:50 IMPRESSION: Unchanged radiographic appearance of the chest. Assessment and Plan - Diagnosis (1) Acute hypoxemic respiratory failure due to COVID-19 Is this a current diagnosis for this admission?: Yes (2) Elevated liver enzymes Is this a current diagnosis for this admission?: Yes (3) HTN (hypertension) Qualifiers: Hypertension type: essential hypertension Qualified Code(s): I10 - Essential (primary) hypertension Is this a current diagnosis for this admission?: Yes (4) Morbid obesity with BMI of 40.0-44.9, adult Is this a current diagnosis for this admission?: Yes (5) RONAK (obstructive sleep apnea) Is this a current diagnosis for this admission?: Yes (6) Pneumonia due to COVID-19 virus Is this a current diagnosis for this admission?: Yes (7) Thrombocytosis Is this a current diagnosis for this admission?: Yes - Plan Summary Summary: Multifocal Pneumonia due to COVID-19 Infection - clinically improving on Rocephin and Zithromax, ivermectin and dexamethasone - inflammatory markers are trending down Acute hypoxemic respiratory failure - continues to require 6 L O2 via NC - wean down O2 as tolerated - incentive spirometry - Monty PRN Morbid obesity with BMI of 40.0-44.9, adult - recommend diet, exercise, weight loss RONAK on CPAP - doing well on his own personal CPAP machine from home at night and when napping HTN (hypertension) - currently hypotensive to normotensive off all BP medications - hold home losartan Elevated liver enzymes - likely due to his acute viral infection, improving Hyperlipidemia - hold home statin due to elevated liver enzymes Thrombocytosis - likely reactive thrombocytosis due to infection DVT ppx: Lovenox - Time Time Spent with patient: 35 or more minutes Anticipated Discharge Disposition: Home, Self Care Anticipated Discharge Timeframe: within 72 hours
[2020-04-28] MEDS: LEVALBUTEROL HCL NEB 0.63 MG/3 ML AMPUL NEB PRN (14:54)
[2020-04-28] MEDS: GABAPENTIN 300 MG CAPSULE PO SCH (17:19)
[2020-04-28] MEDS: CEFTRIAXONE 1 GM/D5W RTU 1 GM/50 ML RTUPB IV SCH (17:19)
[2020-04-28] MEDS: AZITHROMYCIN 500 MG in DEXTROSE 5%-WATER 250 ML IV SCH (21:53)
[2020-04-28] MEDS ORDERED: ATORVASTATIN CALCIUM 20 MG TABLET PO SCH (22:00)
[2020-04-29 06:07] LABS: HEMATOCRIT 36.4 % (37.9-51.0); HEMOGLOBIN 12.4 g/dL (13.5-17.0); MEAN CORPUSCULAR HEMOGLOBIN 31.1 pg (27.0-33.4); MEAN CORPUSCULAR HGB CONC 34.2 g/dL (32.0-36.0); MEAN CORPUSCULAR VOLUME 91 fl (80-97); PLATELET COUNT 537 10^3/uL (150-450); RED CELL DISTRIBUTION WIDTH 13.5 % (11.5-14.0)
[2020-04-29 06:45] LABS: ANION GAP 6 (5-19); BLOOD UREA NITROGEN 28 mg/dL (7-20); C-REACTIVE PROTEIN 31.2 mg/L (<10.0); CALCIUM 8.9 mg/dL (8.4-10.2); CARBON DIOXIDE 27 mmol/L (22-30); CHLORIDE 110 mmol/L (98-107); GLUCOSE 85 mg/dL (75-110); POTASSIUM 4.3 mmol/L (3.6-5.0)
[2020-04-29] MEDS: SENNOSIDES/DOCUSATE 8.6-50 MG 1 EACH TABLET PO SCH ×2 (09:33→17:37)
[2020-04-29] MEDS: ZINC SULFATE 220 MG CAPSULE PO SCH (09:33)
[2020-04-29] MEDS: PANTOPRAZOLE SODIUM 40 MG TABLET.DR PO SCH (09:33)
[2020-04-29] MEDS: ENOXAPARIN SODIUM INJ 40 MG/0.4 ML DISP.SYRIN SUBCUT SCH (09:34)
[2020-04-29] MEDS: CHOLECALCIFEROL (D3) 1,000 UNIT (25 MCG) TABLET PO SCH (09:34)
[2020-04-29] MEDS: POLYETHYLENE GLYCOL 3350 POWDER 17 GM/1 PACKET PO SCH ×2 (09:34→17:37)
[2020-04-29] MEDS: DEXAMETHASONE SOD PHOSPHATE INJ 4 MG/1 ML VIAL IV SCH (09:34)
[2020-04-29] MEDS: GABAPENTIN 300 MG CAPSULE PO SCH ×3 (09:34→17:37)
[2020-04-29] MEDS ORDERED: MAGNESIUM CITRATE 296 ML BOTTLE PO ONE (10:00)
[2020-04-29] MEDS: LEVALBUTEROL HCL NEB 0.63 MG/3 ML AMPUL NEB PRN (10:15)
--- NOTE | 2020-04-29 13:38 | PDOC PROGRESS REPORT ---
Subjective Date:: 04/29/20 Subjective:: NAEO. Feeling constipated today. Reason For Visit: COVID 19 Physical Exam Vital Signs: Temp Pulse Resp BP Pulse Ox 98.0 F 65 24 H 130/57 H 95 04/29/20 11:14 04/29/20 11:14 04/29/20 11:14 04/29/20 11:14 04/29/20 11:14 Intake & Output 04/28/20 04/29/20 04/30/20 06:59 06:59 06:59 Intake Total 550 600 Output Total 700 1025 Balance -150 -425 Weight 136.4 kg 136.4 kg General appearance: PRESENT: no acute distress, cooperative Head exam: PRESENT: atraumatic Eye exam: ABSENT: scleral icterus Mouth exam: PRESENT: moist Throat exam: ABSENT: post pharyngeal erythema Neck exam: ABSENT: JVD Respiratory exam: PRESENT: rhonchi, tachypnea. ABSENT: crackles Cardiovascular exam: PRESENT: RRR GI/Abdominal exam: PRESENT: normal bowel sounds, soft. ABSENT: tenderness Extremities exam: ABSENT: pedal edema Neurological exam: PRESENT: alert, awake Psychiatric exam: PRESENT: appropriate affect Skin exam: ABSENT: rash Results Laboratory Results: 04/29/20 05:39 04/29/20 05:39 04/29/20 04/29/20 05:39 05:39 WBC 11.0 H RBC 4.00 L Hgb 12.4 L Hct 36.4 L MCV 91 MCH 31.1 MCHC 34.2 RDW 13.5 Plt Count 537 H Sodium 143.3 Potassium 4.3 Chloride 110 H Carbon Dioxide 27 Anion Gap 6 BUN 28 H Creatinine 0.99 Est GFR ( Amer) > 60 Glucose 85 Calcium 8.9 Magnesium 2.8 H Ferritin 433.00 C-Reactive Protein 31.2 H 04/25/20 15:03 Creatine Kinase 110 Impressions: Chest/Abdomen CTA 04/25/20 00:00 IMPRESSION: 1. There is no pulmonary embolus. There is no aortic aneurysm or dissection. 2. There are extensive, patchy ground-glass infiltrates bilaterally suggesting an atypical infectious/ inflammatory process. Has the patient been tested for COVID-19? Chest X-Ray 04/27/20 07:50 IMPRESSION: Unchanged radiographic appearance of the chest. Assessment and Plan - Diagnosis (1) Acute hypoxemic respiratory failure due to COVID-19 Is this a current diagnosis for this admission?: Yes (2) Elevated liver enzymes Is this a current diagnosis for this admission?: Yes (3) HTN (hypertension) Qualifiers: Hypertension type: essential hypertension Qualified Code(s): I10 - Essential (primary) hypertension Is this a current diagnosis for this admission?: Yes (4) Morbid obesity with BMI of 40.0-44.9, adult Is this a current diagnosis for this admission?: Yes (5) RONAK (obstructive sleep apnea) Is this a current diagnosis for this admission?: Yes (6) Pneumonia due to COVID-19 virus Is this a current diagnosis for this admission?: Yes (7) Thrombocytosis Is this a current diagnosis for this admission?: Yes (8) Constipation Is this a current diagnosis for this admission?: Yes - Plan Summary Summary: Multifocal Pneumonia due to COVID-19 Infection - clinically improving on Rocephin and Zithromax, ivermectin and dexamethasone - inflammatory markers are trending down Acute hypoxemic respiratory failure - continues to require 6 L O2 via NC - wean down O2 as tolerated - incentive spirometry - DuoNebs PRN RONAK on CPAP - doing well on his own personal CPAP machine from home at night and when napping HTN - currently hypotensive to normotensive off all BP medications - hold home losartan Elevated liver enzymes - likely due to his acute viral infection, improving Hyperlipidemia - hold home statin due to elevated liver enzymes Thrombocytosis - likely reactive thrombocytosis due to infection Constipation - initiate bowel regimen Morbid obesity with BMI of 40.8 - recommend diet, exercise, weight loss DVT ppx: Lovenox - Time Time Spent with patient: 35 or more minutes Anticipated Discharge Disposition: Home, Self Care Anticipated Discharge Timeframe: within 72 hours
[2020-04-29] MEDS: CEFTRIAXONE 1 GM/D5W RTU 1 GM/50 ML RTUPB IV SCH (17:36)
[2020-04-29] MEDS: AZITHROMYCIN 500 MG in DEXTROSE 5%-WATER 250 ML IV SCH (21:06)
[2020-04-30 05:57] LABS: HEMATOCRIT 35.8 % (37.9-51.0); HEMOGLOBIN 12.4 g/dL (13.5-17.0); MEAN CORPUSCULAR HEMOGLOBIN 31.5 pg (27.0-33.4); MEAN CORPUSCULAR HGB CONC 34.8 g/dL (32.0-36.0); MEAN CORPUSCULAR VOLUME 91 fl (80-97); PLATELET COUNT 558 10^3/uL (150-450); RED BLOOD COUNT 3.95 10^6/uL (4.35-5.55); RED CELL DISTRIBUTION WIDTH 13.6 % (11.5-14.0); WHITE BLOOD COUNT 10.9 10^3/uL (4.0-10.5)
[2020-04-30] MEDS: ENOXAPARIN SODIUM INJ 40 MG/0.4 ML DISP.SYRIN SUBCUT SCH (09:35)
[2020-04-30] MEDS: GABAPENTIN 300 MG CAPSULE PO SCH ×3 (09:35→18:51)
[2020-04-30] MEDS: ZINC SULFATE 220 MG CAPSULE PO SCH (09:35)
[2020-04-30] MEDS: PANTOPRAZOLE SODIUM 40 MG TABLET.DR PO SCH (09:35)
[2020-04-30] MEDS: DEXAMETHASONE SOD PHOSPHATE INJ 4 MG/1 ML VIAL IV SCH (09:35)
[2020-04-30] MEDS: POLYETHYLENE GLYCOL 3350 POWDER 17 GM/1 PACKET PO SCH (09:35)
[2020-04-30] MEDS: CHOLECALCIFEROL (D3) 1,000 UNIT (25 MCG) TABLET PO SCH (09:35)
[2020-04-30] MEDS: SENNOSIDES/DOCUSATE 8.6-50 MG 1 EACH TABLET PO SCH (09:36)
--- NOTE | 2020-04-30 16:12 | PDOC PROGRESS REPORT ---
Subjective Date:: 04/30/20 Subjective:: NAEO. Today, he is requiring 8-9 L O2 and saturating 90%. He desaturates with minimal exertion into low 80s. Reason For Visit: COVID 19 Physical Exam Vital Signs: Temp Pulse Resp BP Pulse Ox 98.6 F 63 20 142/71 H 94 04/30/20 11:38 04/30/20 11:38 04/30/20 11:38 04/30/20 11:38 04/30/20 11:38 Intake & Output 04/29/20 04/30/20 05/01/20 06:59 06:59 06:59 Intake Total 600 830 Output Total 1025 Balance -425 830 Weight 136.4 kg 134.8 kg General appearance: PRESENT: no acute distress, cooperative Eye exam: ABSENT: scleral icterus Mouth exam: PRESENT: moist Throat exam: ABSENT: post pharyngeal erythema Neck exam: ABSENT: JVD Respiratory exam: PRESENT: rhonchi. ABSENT: wheezes Cardiovascular exam: PRESENT: RRR GI/Abdominal exam: PRESENT: normal bowel sounds, soft. ABSENT: tenderness Gentrourinary exam: ABSENT: indwelling catheter Extremities exam: ABSENT: pedal edema Neurological exam: PRESENT: alert, awake, oriented to person, oriented to place, oriented to time, oriented to situation Psychiatric exam: PRESENT: appropriate affect Skin exam: ABSENT: rash Results Laboratory Results: 04/30/20 04:39 04/29/20 05:39 04/30/20 04/30/20 04:39 04:39 WBC 10.9 H RBC 3.95 L Hgb 12.4 L Hct 35.8 L MCV 91 MCH 31.5 MCHC 34.8 RDW 13.6 Plt Count 558 H Ferritin 450.00 04/25/20 15:03 Creatine Kinase 110 Impressions: Chest/Abdomen CTA 04/25/20 00:00 IMPRESSION: 1. There is no pulmonary embolus. There is no aortic aneurysm or dissection. 2. There are extensive, patchy ground-glass infiltrates bilaterally suggesting an atypical infectious/ inflammatory process. Has the patient been tested for COVID-19? Chest X-Ray 04/27/20 07:50 IMPRESSION: Unchanged radiographic appearance of the chest. Assessment and Plan - Diagnosis (1) Multifocal pneumonia Is this a current diagnosis for this admission?: Yes (2) Acute hypoxemic respiratory failure due to COVID-19 Is this a current diagnosis for this admission?: Yes (3) Elevated liver enzymes Is this a current diagnosis for this admission?: Yes (4) HTN (hypertension) Qualifiers: Hypertension type: essential hypertension Qualified Code(s): I10 - Essential (primary) hypertension Is this a current diagnosis for this admission?: Yes (5) Morbid obesity with BMI of 40.0-44.9, adult Is this a current diagnosis for this admission?: Yes (6) RONAK (obstructive sleep apnea) Is this a current diagnosis for this admission?: Yes (7) Pneumonia due to COVID-19 virus Is this a current diagnosis for this admission?: Yes (8) Thrombocytosis Is this a current diagnosis for this admission?: Yes (9) Constipation Is this a current diagnosis for this admission?: Yes - Plan Summary Summary: Multifocal Pneumonia due to COVID-19 Infection - completed antibiotic therapy with Rocephin and Zithromax x5 days - completed ivermectin therapy 04/25-04/26 - continue dexamethasone x10 days - inflammatory markers are trending down Acute hypoxemic respiratory failure - wean down O2 as tolerated - incentive spirometry - DuoNebs PRN RONAK on CPAP - doing well on his own personal CPAP machine from home at night and when napping HTN - currently normotensive off all BP medications - hold home losartan Elevated liver enzymes - likely due to his acute viral infection, improving Hyperlipidemia - hold home statin due to elevated liver enzymes Thrombocytosis - likely reactive, due to infection Constipation - resolved with bowel regimen Morbid obesity with BMI of 40.8 - recommend diet, exercise, weight loss DVT ppx: Lovenox - Time Time Spent with patient: 35 or more minutes Anticipated Discharge Disposition: Home, Self Care Anticipated Discharge Timeframe: within 72 hours
[2020-05-01] MEDS: GABAPENTIN 300 MG CAPSULE PO SCH ×3 (11:17→17:07)
[2020-05-01] MEDS: PANTOPRAZOLE SODIUM 40 MG TABLET.DR PO SCH (11:17)
[2020-05-01] MEDS: ZINC SULFATE 220 MG CAPSULE PO SCH (11:17)
[2020-05-01] MEDS: CHOLECALCIFEROL (D3) 1,000 UNIT (25 MCG) TABLET PO SCH (11:17)
[2020-05-01] MEDS: ENOXAPARIN SODIUM INJ 40 MG/0.4 ML DISP.SYRIN SUBCUT SCH (11:18)
[2020-05-01] MEDS: POLYETHYLENE GLYCOL 3350 POWDER 17 GM/1 PACKET PO SCH ×2 (11:18→11:33)
[2020-05-01] MEDS: DEXAMETHASONE SOD PHOSPHATE INJ 4 MG/1 ML VIAL IV SCH (11:18)
--- NOTE | 2020-05-01 15:42 | PDOC PROGRESS REPORT ---
Subjective Date:: 05/01/20 Reason For Visit: COVID 19 Physical Exam Vital Signs: Temp Pulse Resp BP Pulse Ox 98.2 F 68 20 130/62 H 93 05/01/20 12:00 05/01/20 14:00 05/01/20 12:00 05/01/20 12:00 05/01/20 12:00 Intake & Output 04/30/20 05/01/20 05/02/20 06:59 06:59 06:59 Intake Total 1300 530 Output Total 225 Balance 1075 530 Weight 134.8 kg 134.9 kg 134.9 kg Respiratory exam: PRESENT: rales - Fine rales at bases, symmetrical, unlabored. ABSENT: rhonchi, tachypnea, wheezes Cardiovascular exam: PRESENT: RRR, +S1, +S2 Results Laboratory Results: 04/30/20 04:39 04/29/20 05:39 05/01/20 06:10 Ferritin 332.00 04/25/20 17:44 Blood Blood Culture - Final NO GROWTH IN 5 DAYS 04/25/20 15:03 Blood Blood Culture - Final NO GROWTH IN 5 DAYS 04/25/20 15:03 Creatine Kinase 110 Impressions: Chest/Abdomen CTA 04/25/20 00:00 IMPRESSION: 1. There is no pulmonary embolus. There is no aortic aneurysm or dissection. 2. There are extensive, patchy ground-glass infiltrates bilaterally suggesting an atypical infectious/ inflammatory process. Has the patient been tested for COVID-19? Chest X-Ray 04/27/20 07:50 IMPRESSION: Unchanged radiographic appearance of the chest. Assessment and Plan - Diagnosis (1) Multifocal pneumonia Is this a current diagnosis for this admission?: Yes (2) Acute hypoxemic respiratory failure due to COVID-19 Is this a current diagnosis for this admission?: Yes (3) Elevated liver enzymes Is this a current diagnosis for this admission?: Yes (4) HTN (hypertension) Qualifiers: Hypertension type: essential hypertension Qualified Code(s): I10 - Essential (primary) hypertension Is this a current diagnosis for this admission?: Yes (5) Morbid obesity with BMI of 40.0-44.9, adult Is this a current diagnosis for this admission?: Yes (6) RONAK (obstructive sleep apnea) Is this a current diagnosis for this admission?: Yes (7) Pneumonia due to COVID-19 virus Is this a current diagnosis for this admission?: Yes (8) Thrombocytosis Is this a current diagnosis for this admission?: Yes (9) Constipation Qualifiers: Constipation type: unspecified constipation type Qualified Code(s): K59.00 - Constipation, unspecified Is this a current diagnosis for this admission?: Yes - Plan Summary Summary: Multifocal Pneumonia due to COVID-19 Infection - completed antibiotic therapy with Rocephin and Zithromax x5 days - completed ivermectin therapy 04/25-04/26 - continue dexamethasone x10 days - inflammatory markers are trending down -Continue current regimen and trend inflammatory markers. They continue to improve. Acute hypoxemic respiratory failure - wean down O2 as tolerated - incentive spirometry - DuoNebs PRN -Seems to have plateaued on 6 L nasal cannula. Continue to taper oxygen as tolerated. RONAK on CPAP - doing well on his own personal CPAP machine from home at night and when n apping -Did not tolerate the hospital CPAP machine. He does have his own machine. He normally takes Flonase at home so I have ordered this. This may help. HTN - currently normotensive off all BP medications - hold home losartan -Pressures are starting to increase. Monitor closely and resume losartan accordingly Elevated liver enzymes - likely due to his acute viral infection, improving Hyperlipidemia - hold home statin due to elevated liver enzymes -Resume when transaminases normalize Thrombocytosis - likely reactive, due to infection -Platelet counts seem to be trending up slightly. We will continue to monitor. Constipation - resolved with bowel regimen Morbid obesity with BMI of 40.8 - recommend diet, exercise, weight loss DVT ppx: Lovenox - Time Time Spent with patient: 15-24 minutes Medications reviewed and adjusted accordingly: Yes Anticipated Discharge Disposition: Home with Home Health Anticipated Discharge Timeframe: Unknown
[2020-05-01 17:51] LABS: APPEARANCE,URINE SLIGHTLY-CLOUDY; BILIRUBIN,URINE NEGATIVE (NEGATIVE); COLOR,URINE YELLOW; GLUCOSE, URINE NEGATIVE (NEGATIVE); KETONES,URINE NEGATIVE (NEGATIVE); LEUKOCYTE ESTERASE,URINE NEGATIVE (NEGATIVE); NITRITE,URINE NEGATIVE (NEGATIVE); PROTEIN,URINE NEGATIVE (NEGATIVE); UROBILINOGEN,URINE NEGATIVE mg/dL (<2.0)
[2020-05-01] MEDS: MONTELUKAST SODIUM 10 MG TABLET PO SCH (21:20)
[2020-05-01] MEDS: FLUTICASONE NASAL SPRAY 50 MCG/SPRY 120 SPRAY/16 GM NASL SCH (21:20)
[2020-05-02 06:03] LABS: APPEARANCE,URINE CLEAR; BILIRUBIN,URINE NEGATIVE (NEGATIVE); COLOR,URINE YELLOW; GLUCOSE, URINE NEGATIVE (NEGATIVE); KETONES,URINE NEGATIVE (NEGATIVE); LEUKOCYTE ESTERASE,URINE NEGATIVE (NEGATIVE); NITRITE,URINE NEGATIVE (NEGATIVE); PROTEIN,URINE NEGATIVE (NEGATIVE); URINE SPECIFIC GRAVITY 1.024; UROBILINOGEN,URINE NEGATIVE mg/dL (<2.0)
[2020-05-02 06:50] LABS: HEMATOCRIT 36.9 % (37.9-51.0); HEMOGLOBIN 12.5 g/dL (13.5-17.0); MEAN CORPUSCULAR HEMOGLOBIN 30.7 pg (27.0-33.4); MEAN CORPUSCULAR VOLUME 90 fl (80-97); PLATELET COUNT 587 10^3/uL (150-450); RED BLOOD COUNT 4.09 10^6/uL (4.35-5.55); RED CELL DISTRIBUTION WIDTH 13.9 % (11.5-14.0); WHITE BLOOD COUNT 11.2 10^3/uL (4.0-10.5)
[2020-05-02 07:47] LABS: ANION GAP 9 (5-19); BLOOD UREA NITROGEN 26 mg/dL (7-20); C-REACTIVE PROTEIN 32.9 mg/L (<10.0); CALCIUM 9.1 mg/dL (8.4-10.2); CARBON DIOXIDE 28 mmol/L (22-30); CHLORIDE 104 mmol/L (98-107); GLUCOSE 89 mg/dL (75-110); POTASSIUM 4.7 mmol/L (3.6-5.0)
[2020-05-02] MEDS: ENOXAPARIN SODIUM INJ 40 MG/0.4 ML DISP.SYRIN SUBCUT SCH (09:18)
[2020-05-02] MEDS: ZINC SULFATE 220 MG CAPSULE PO SCH (09:19)
[2020-05-02] MEDS: CHOLECALCIFEROL (D3) 1,000 UNIT (25 MCG) TABLET PO SCH (09:19)
[2020-05-02] MEDS: GABAPENTIN 300 MG CAPSULE PO SCH ×3 (09:19→18:14)
[2020-05-02] MEDS: PANTOPRAZOLE SODIUM 40 MG TABLET.DR PO SCH (09:19)
[2020-05-02] MEDS: DEXAMETHASONE SOD PHOSPHATE INJ 4 MG/1 ML VIAL IV SCH (09:19)
[2020-05-02] MEDS: FLUTICASONE NASAL SPRAY 50 MCG/SPRY 120 SPRAY/16 GM NASL SCH ×2 (09:20→21:21)
[2020-05-02] MEDS: POLYETHYLENE GLYCOL 3350 POWDER 17 GM/1 PACKET PO SCH (09:23)
[2020-05-02] MEDS: MONTELUKAST SODIUM 10 MG TABLET PO SCH (21:19)
--- NOTE | 2020-05-02 22:02 | PDOC PROGRESS REPORT ---
Subjective Date:: 05/02/20 Subjective:: Resting in the chair. Continues on nasal cannula. Reason For Visit: COVID 19 Physical Exam Vital Signs: Temp Pulse Resp BP Pulse Ox 98.5 F 92 20 127/65 H 100 05/02/20 16:13 05/02/20 19:00 05/02/20 16:13 05/02/20 16:13 05/02/20 16:13 Intake & Output 05/01/20 05/02/20 05/03/20 06:59 06:59 06:59 Intake Total 1300 1670 600 Output Total 225 650 Balance 1075 1020 600 Weight 134.9 kg 136 kg General appearance: PRESENT: no acute distress Ear exam: PRESENT: normal external ear exam. ABSENT: bleeding, drainage Respiratory exam: PRESENT: symmetrical, tachypnea, unlabored. ABSENT: rales, rhonchi, wheezes Cardiovascular exam: PRESENT: RRR, +S1, +S2. ABSENT: bradycardia, diastolic murmur, irregular rhythm, systolic murmur GI/Abdominal exam: PRESENT: normal bowel sounds, soft. ABSENT: tenderness Extremities exam: ABSENT: pedal edema Neurological exam: PRESENT: alert, awake, oriented to person, oriented to place, oriented to time, oriented to situation, CN II-XII grossly intact. ABSENT: altered Psychiatric exam: PRESENT: appropriate affect Results Laboratory Results: 05/02/20 05:45 05/02/20 05:45 05/02/20 05/02/20 05/02/20 04:05 05:45 05:45 WBC 11.2 H RBC 4.09 L Hgb 12.5 L Hct 36.9 L MCV 90 MCH 30.7 MCHC 34.0 RDW 13.9 Plt Count 587 H Sodium 140.8 Potassium 4.7 Chloride 104 Carbon Dioxide 28 Anion Gap 9 BUN 26 H Creatinine 0.86 Est GFR ( Amer) > 60 Glucose 89 Calcium 9.1 Magnesium 2.5 H C-Reactive Protein 32.9 H Urine Color YELLOW Urine Appearance CLEAR Urine pH 5.0 Ur Specific [place] 1.024 Urine Protein NEGATIVE Urine Glucose (UA) NEGATIVE Urine Ketones NEGATIVE Urine Blood NEGATIVE Urine Nitrite NEGATIVE Ur Leukocyte Esterase NEGATIVE Urine WBC (Auto) 1 Urine RBC (Auto) 1 04/25/20 15:03 Creatine Kinase 110 Impressions: Chest/Abdomen CTA 04/25/20 00:00 IMPRESSION: 1. There is no pulmonary embolus. There is no aortic aneurysm or dissection. 2. There are extensive, patchy ground-glass infiltrates bilaterally suggesting an atypical infectious/ inflammatory process. Has the patient been tested for COVID-19? Chest X-Ray 04/27/20 07:50 IMPRESSION: Unchanged radiographic appearance of the chest. Assessment and Plan - Diagnosis (1) Multifocal pneumonia Is this a current diagnosis for this admission?: Yes (2) Acute hypoxemic respiratory failure due to COVID-19 Is this a current diagnosis for this admission?: Yes (3) Elevated liver enzymes Is this a current diagnosis for this admission?: Yes (4) HTN (hypertension) Qualifiers: Hypertension type: essential hypertension Qualified Code(s): I10 - Essential (primary) hypertension Is this a current diagnosis for this admission?: Yes (5) Morbid obesity with BMI of 40.0-44.9, adult Is this a current diagnosis for this admission?: Yes (6) RONAK (obstructive sleep apnea) Is this a current diagnosis for this admission?: Yes (7) Pneumonia due to COVID-19 virus Is this a current diagnosis for this admission?: Yes (8) Thrombocytosis Is this a current diagnosis for this admission?: Yes (9) Constipation Qualifiers: Constipation type: unspecified constipation type Qualified Code(s): K59.00 - Constipation, unspecified Is this a current diagnosis for this admission?: Yes - Plan Summary Summary: Multifocal Pneumonia due to COVID-19 Infection - completed antibiotic therapy with Rocephin and Zithromax x5 days - completed ivermectin therapy 04/25-04/26 - continue dexamethasone x10 days - inflammatory markers are trending down -Continue current regimen and trend inflammatory markers. They continue to improve. Acute hypoxemic respiratory failure - wean down O2 as tolerated - incentive spirometry - DuoNebs scheduled -Seems to have plateaued on 6 L nasal cannula. Continue to taper oxygen as tolerated. RONAK on CPAP - doing well on his own personal CPAP machine from home at night and when napping -Did not tolerate the hospital CPAP machine. He does have his own machine. He normally takes Flonase at home so I have ordered this. This may help. HTN - currently normotensive off all BP medications - hold home losartan -Pressures are starting to increase. Monitor closely and resume losartan accordingly Elevated liver enzymes - likely due to his acute viral infection, improving Hyperlipidemia - hold home statin due to elevated liver enzymes -Resume when transaminases normalize Thrombocytosis - likely reactive, due to infection -Platelet counts seem to be trending up slightly. We will continue to monitor. Constipation - resolved with bowel regimen Morbid obesity with BMI of 40.8 - recommend diet, exercise, weight loss DVT ppx: Lovenox - Time Time Spent with patient: 15-24 minutes Medications reviewed and adjusted accordingly: Yes Anticipated Discharge Disposition: Home with Home Health Anticipated Discharge Timeframe: Unknown
[2020-05-03] MEDS: LEVALBUTEROL HCL NEB 1.25 MG/3 ML AMPUL NEB SCH ×3 (00:13→16:19)
--- NOTE | 2020-05-03 09:59 | PDOC PROGRESS REPORT ---
Subjective Date:: 05/03/20 Subjective:: Resting comfortably. He finished all of his breakfast. He states that he again is feeling better today than yesterday. Reason For Visit: COVID 19 Physical Exam Vital Signs: Temp Pulse Resp BP Pulse Ox 97.8 F 59 L 20 110/54 L 96 05/03/20 08:09 05/03/20 08:09 05/03/20 08:09 05/03/20 08:09 05/03/20 08:09 Intake & Output 05/02/20 05/03/20 05/04/20 06:59 06:59 06:59 Intake Total 1670 600 Output Total 650 Balance 1020 600 Weight 136 kg 134.8 kg General appearance: PRESENT: no acute distress, cooperative, well-developed Head exam: PRESENT: atraumatic, normocephalic Mouth exam: PRESENT: moist, tongue midline Neck exam: PRESENT: full ROM. ABSENT: JVD, lymphadenopathy Respiratory exam: PRESENT: clear to auscultation alma delia, symmetrical, unlabored. ABSENT: prolonged expiratory phas, rales, rhonchi, tachypnea, wheezes Cardiovascular exam: PRESENT: RRR, +S1, +S2. ABSENT: bradycardia, diastolic murmur, irregular rhythm, systolic murmur, tachycardia GI/Abdominal exam: PRESENT: normal bowel sounds, soft. ABSENT: distended, guarding, tenderness Rectal exam: PRESENT: deferred Gentrourinary exam: ABSENT: indwelling catheter Extremities exam: ABSENT: pedal edema Musculoskeletal exam: PRESENT: ambulatory, normal inspection. ABSENT: deformity, dislocation Neurological exam: PRESENT: alert, awake, oriented to person, oriented to place, oriented to time, oriented to situation, CN II-XII grossly intact. ABSENT: altered Psychiatric exam: PRESENT: appropriate affect. ABSENT: agitated, anxious Focused psych exam: ABSENT: delusional, paranoid, restlessness Skin exam: PRESENT: dry, warm. ABSENT: rash Results Laboratory Results: 05/02/20 05:45 05/02/20 05:45 04/25/20 15:03 Creatine Kinase 110 Impressions: Chest/Abdomen CTA 04/25/20 00:00 IMPRESSION: 1. There is no pulmonary embolus. There is no aortic aneurysm or dissection. 2. There are extensive, patchy ground-glass infiltrates bilaterally suggesting an atypical infectious/ inflammatory process. Has the patient been tested for COVID-19? Chest X-Ray 04/27/20 07:50 IMPRESSION: Unchanged radiographic appearance of the chest. Assessment and Plan - Diagnosis (1) Multifocal pneumonia Is this a current diagnosis for this admission?: Yes (2) Acute hypoxemic respiratory failure due to COVID-19 Is this a current diagnosis for this admission?: Yes (3) Elevated liver enzymes Is this a current diagnosis for this admission?: Yes (4) HTN (hypertension) Qualifiers: Hypertension type: essential hypertension Qualified Code(s): I10 - Essential (primary) hypertension Is this a current diagnosis for this admission?: Yes (5) Morbid obesity with BMI of 40.0-44.9, adult Is this a current diagnosis for this admission?: Yes (6) RONAK (obstructive sleep apnea) Is this a current diagnosis for this admission?: Yes (7) Pneumonia due to COVID-19 virus Is this a current diagnosis for this admission?: Yes (8) Thrombocytosis Is this a current diagnosis for this admission?: Yes (9) Constipation Qualifiers: Constipation type: unspecified constipation type Qualified Code(s): K59.00 - Constipation, unspecified Is this a current diagnosis for this admission?: Yes - Plan Summary Summary: Multifocal Pneumonia due to COVID-19 Infection - completed antibiotic therapy with Rocephin and Zithromax x5 days - completed ivermectin therapy 04/25-04/26 -Dexamethasone discontinued. Solu-Medrol initiated. - inflammatory markers are trending down -Checking ferritin and C-reactive protein in the morning as well as serum chemistries and CBC.. Acute hypoxemic respiratory failure - wean down O2 as tolerated - incentive spirometry - DuoNebs scheduled and as needed -Has required increased oxygen flow. Will be trying Oxymizer mask. Continue to taper oxygen as tolerated. Oxygen saturations in the mid 90s are acceptable. RONAK on CPAP - doing well on his own personal CPAP machine from home at night and when napping. Appears to get restorative sleep. -Tolerating Flonase. HTN -He was normotensive off all BP medications -With increased blood pressure I have resumed the losartan. Will monitor vital signs. Elevated liver enzymes - likely due to his acute viral infection, improving -Laboratory studies ordered for tomorrow Hyperlipidemia - hold home statin due to elevated liver enzymes -Resume when transaminases normalize Thrombocytosis - likely reactive, due to infection -Platelet counts seem to be trending up slightly. We will continue to monitor. -No acute intervention at this time Constipation - resolved with bowel regimen Morbid obesity with BMI of 40.8 - recommend diet, exercise, weight loss DVT ppx: Lovenox - Time Time Spent with patient: 15-24 minutes Medications reviewed and adjusted accordingly: Yes Anticipated Discharge Disposition: Home with Home Health Anticipated Discharge Timeframe: 3-4 days
[2020-05-03] MEDS: CHOLECALCIFEROL (D3) 1,000 UNIT (25 MCG) TABLET PO SCH (10:22)
[2020-05-03] MEDS: ZINC SULFATE 220 MG CAPSULE PO SCH (10:22)
[2020-05-03] MEDS: PANTOPRAZOLE SODIUM 40 MG TABLET.DR PO SCH (10:22)
[2020-05-03] MEDS: METHYLPREDNISOLONE INJ 40 MG/1 ML SDV IV SCH ×2 (10:22→21:17)
[2020-05-03] MEDS: LOSARTAN POTASSIUM 50 MG TABLET PO SCH (10:22)
[2020-05-03] MEDS: FLUTICASONE NASAL SPRAY 50 MCG/SPRY 120 SPRAY/16 GM NASL SCH ×2 (10:22→21:18)
[2020-05-03] MEDS: GABAPENTIN 300 MG CAPSULE PO SCH ×3 (10:22→18:29)
[2020-05-03] MEDS: POLYETHYLENE GLYCOL 3350 POWDER 17 GM/1 PACKET PO SCH (10:23)
[2020-05-03] MEDS: ENOXAPARIN SODIUM INJ 40 MG/0.4 ML DISP.SYRIN SUBCUT SCH (10:23)
[2020-05-03] MEDS: MONTELUKAST SODIUM 10 MG TABLET PO SCH (21:17)
[2020-05-04] MEDS: LEVALBUTEROL HCL NEB 1.25 MG/3 ML AMPUL NEB SCH ×4 (00:49→23:53)
[2020-05-04 06:06] LABS: APPEARANCE,URINE CLEAR; BILIRUBIN,URINE NEGATIVE (NEGATIVE); COLOR,URINE YELLOW; GLUCOSE, URINE NEGATIVE (NEGATIVE); KETONES,URINE NEGATIVE (NEGATIVE); LEUKOCYTE ESTERASE,URINE NEGATIVE (NEGATIVE); NITRITE,URINE NEGATIVE (NEGATIVE); PROTEIN,URINE NEGATIVE (NEGATIVE); URINE SPECIFIC GRAVITY 1.017; UROBILINOGEN,URINE NEGATIVE mg/dL (<2.0)
[2020-05-04 06:36] LABS: HEMATOCRIT 37.2 % (37.9-51.0); HEMOGLOBIN 12.6 g/dL (13.5-17.0); MEAN CORPUSCULAR HEMOGLOBIN 30.6 pg (27.0-33.4); MEAN CORPUSCULAR HGB CONC 33.9 g/dL (32.0-36.0); MEAN CORPUSCULAR VOLUME 90 fl (80-97); PLATELET COUNT 557 10^3/uL (150-450); RED BLOOD COUNT 4.13 10^6/uL (4.35-5.55); RED CELL DISTRIBUTION WIDTH 13.8 % (11.5-14.0); WHITE BLOOD COUNT 11.6 10^3/uL (4.0-10.5)
[2020-05-04 07:04] LABS: ALBUMIN 3.5 g/dL (3.5-5.0); ALKALINE PHOSPHATASE 73 U/L (38-126); ASPARTATE AMINO TRANSFERASE 48 U/L (17-59); BILIRUBIN,DIRECT 0.2 mg/dL (0.0-0.4); BILIRUBIN,TOTAL 0.4 mg/dL (0.2-1.3); BLOOD UREA NITROGEN 27 mg/dL (7-20); C-REACTIVE PROTEIN 17.1 mg/L (<10.0); CALCIUM 9.8 mg/dL (8.4-10.2); CHLORIDE 103 mmol/L (98-107); GLUCOSE 128 mg/dL (75-110); POTASSIUM 5.5 mmol/L (3.6-5.0); TOTAL PROTEIN 6.6 g/dL (6.3-8.2)
[2020-05-04 07:08] LABS: ANION GAP 6 (5-19); CARBON DIOXIDE 30 mmol/L (22-30)
[2020-05-04] MEDS ORDERED: SODIUM POLYSTYRENE SULFONATE 15 GM/60 ML PO ONE (09:30)
[2020-05-04] MEDS: LOSARTAN POTASSIUM 50 MG TABLET PO SCH (10:26)
[2020-05-04] MEDS: GABAPENTIN 300 MG CAPSULE PO SCH ×3 (10:26→18:38)
[2020-05-04] MEDS: PANTOPRAZOLE SODIUM 40 MG TABLET.DR PO SCH (10:26)
[2020-05-04] MEDS: CHOLECALCIFEROL (D3) 1,000 UNIT (25 MCG) TABLET PO SCH (10:26)
[2020-05-04] MEDS: ZINC SULFATE 220 MG CAPSULE PO SCH (10:26)
[2020-05-04] MEDS: FLUTICASONE NASAL SPRAY 50 MCG/SPRY 120 SPRAY/16 GM NASL SCH ×2 (10:27→21:06)
[2020-05-04] MEDS: POLYETHYLENE GLYCOL 3350 POWDER 17 GM/1 PACKET PO SCH (10:27)
[2020-05-04] MEDS: METHYLPREDNISOLONE INJ 40 MG/1 ML SDV IV SCH ×2 (10:27→21:06)
[2020-05-04] MEDS: ENOXAPARIN SODIUM INJ 40 MG/0.4 ML DISP.SYRIN SUBCUT SCH (10:27)
--- NOTE | 2020-05-04 10:58 | PDOC PROGRESS REPORT ---
Subjective Date:: 05/04/20 Subjective:: Doing well. Down to 1 L nasal cannula. Reason For Visit: COVID 19 Physical Exam Vital Signs: Temp Pulse Resp BP Pulse Ox 98.0 F 68 16 121/65 95 05/04/20 07:58 05/04/20 08:20 05/04/20 08:20 05/04/20 07:58 05/04/20 08:20 Intake & Output 05/03/20 05/04/20 05/05/20 06:59 06:59 06:59 Intake Total 600 720 Output Total 300 Balance 600 420 Weight 134.8 kg 134.6 kg General appearance: PRESENT: no acute distress, cooperative, well-developed Head exam: PRESENT: atraumatic, normocephalic Eye exam: PRESENT: conjunctiva pink. ABSENT: scleral icterus Ear exam: PRESENT: normal external ear exam. ABSENT: bleeding, drainage Respiratory exam: PRESENT: rales - Faint rales at right base, symmetrical, unlabored. ABSENT: rhonchi, tachypnea, wheezes Cardiovascular exam: PRESENT: RRR, +S1, +S2. ABSENT: bradycardia, diastolic murmur, irregular rhythm, systolic murmur, tachycardia GI/Abdominal exam: PRESENT: normal bowel sounds, soft. ABSENT: distended, guarding, tenderness Rectal exam: PRESENT: deferred Gentrourinary exam: ABSENT: indwelling catheter Extremities exam: ABSENT: pedal edema Musculoskeletal exam: PRESENT: ambulatory, normal inspection. ABSENT: deformi ty, dislocation Neurological exam: PRESENT: alert, altered. ABSENT: awake Psychiatric exam: PRESENT: appropriate affect. ABSENT: agitated, anxious Focused psych exam: ABSENT: delusional, paranoid, restlessness Skin exam: PRESENT: dry, normal color, warm. ABSENT: rash Results Laboratory Results: 05/04/20 05:50 05/04/20 05:50 05/04/20 05/04/20 05/04/20 05:30 05:50 05:50 WBC 11.6 H RBC 4.13 L Hgb 12.6 L Hct 37.2 L MCV 90 MCH 30.6 MCHC 33.9 RDW 13.8 Plt Count 557 H Sodium 138.5 Potassium 5.5 H Chloride 103 Carbon Dioxide 30 Anion Gap 6 BUN 27 H Creatinine 0.95 Est GFR ( Amer) > 60 Glucose 128 H Calcium 9.8 Magnesium 2.5 H Total Bilirubin 0.4 AST 48 Alkaline Phosphatase 73 C-Reactive Protein 17.1 H Total Protein 6.6 Albumin 3.5 Urine Color YELLOW Urine Appearance CLEAR Urine pH 5.0 Ur Specific [place] 1.017 Urine Protein NEGATIVE Urine Glucose (UA) NEGATIVE Urine Ketones NEGATIVE Urine Blood NEGATIVE Urine Nitrite NEGATIVE Ur Leukocyte Esterase NEGATIVE Urine WBC (Auto) 0 Urine RBC (Auto) 0 04/25/20 15:03 Creatine Kinase 110 Impressions: Chest/Abdomen CTA 04/25/20 00:00 IMPRESSION: 1. There is no pulmonary embolus. There is no aortic aneurysm or dissection. 2. There are extensive, patchy ground-glass infiltrates bilaterally suggesting an atypical infectious/ inflammatory process. Has the patient been tested for COVID-19? Chest X-Ray 04/27/20 07:50 IMPRESSION: Unchanged radiographic appearance of the chest. Assessment and Plan - Diagnosis (1) Multifocal pneumonia Is this a current diagnosis for this admission?: Yes (2) Acute hypoxemic respiratory failure due to COVID-19 Is this a current diagnosis for this admission?: Yes (3) Elevated liver enzymes Is this a current diagnosis for this admission?: Yes (4) HTN (hypertension) Qualifiers: Hypertension type: essential hypertension Qualified Code(s): I10 - Essential (primary) hypertension Is this a current diagnosis for this admission?: Yes (5) Morbid obesity with BMI of 40.0-44.9, adult Is this a current diagnosis for this admission?: Yes (6) RONAK (obstructive sleep apnea) Is this a current diagnosis for this admission?: Yes (7) Pneumonia due to COVID-19 virus Is this a current diagnosis for this admission?: Yes (8) Thrombocytosis Is this a current diagnosis for this admission?: Yes (9) Constipation Qualifiers: Constipation type: unspecified constipation type Qualified Code(s): K59.00 - Constipation, unspecified Is this a current diagnosis for this admission?: Yes (10) Hyperkalemia Is this a current diagnosis for this admission?: Yes - Plan Summary Summary: Multifocal Pneumonia due to COVID-19 Infection - completed antibiotic therapy with Rocephin and Zithromax x5 days - completed ivermectin therapy 04/25-04/26 -Dexamethasone discontinued. Solu-Medrol initiated. - inflammatory markers are trending down -Checking ferritin and C-reactive protein in the morning as well as serum chemistries and CBC. -CRP is down to 17.1. White blood cell count 11.6. Acute hypoxemic respiratory failure - wean down O2 as tolerated - incentive spirometry - DuoNebs scheduled and as needed -Has required increased oxygen flow. Will be trying Oxymizer mask. Continue to taper oxygen as tolerated. Oxygen saturations in the mid 90s are acceptable. -Oxygen was down to 1 L/min this morning. Will attempt to achieve adequate ox ygen saturation on room air. If this is achieved then discharge home tomorrow RONAK on CPAP - doing well on his own personal CPAP machine from home at night and when napping. Appears to get restorative sleep. -Tolerating Flonase. -Patient reports that Flonase seems to be helping. HTN -He was normotensive off all BP medications -With increased blood pressure I have resumed the losartan. Will monitor vital signs. -Improved blood pressure control with losartan. Need to monitor for hypotension. Elevated liver enzymes - likely due to his acute viral infection, improving -Laboratory studies ordered for tomorrow -With the exception of ALT remaining transaminases are normal Hyperlipidemia - hold home statin due to elevated liver enzymes -Resume when transaminases normalize -Likely resume after discharge as LFTs should stabilize Thrombocytosis - likely reactive, due to infection -Platelet counts seem to be trending up slightly. We will continue to monitor. -No acute intervention at this time -Platelet count remains elevated but stable Constipation - resolved with bowel regimen Morbid obesity with BMI of 40.8 - recommend diet, exercise, weight loss Hyperkalemia -Serum potassium is 5.5 today. Will administer 1 dose of Kayexalate and recheck in the morning. Etiology is unknown. Change diet to low potassium diet. DVT ppx: Lovenox - Time Time Spent with patient: 15-24 minutes Medications reviewed and adjusted accordingly: Yes Anticipated Discharge Disposition: Home, Self Care Anticipated Discharge Timeframe: within 72 hours
[2020-05-04] MEDS: MONTELUKAST SODIUM 10 MG TABLET PO SCH (21:06)
[2020-05-05 06:15] LABS: ANION GAP 6 (5-19); BLOOD UREA NITROGEN 29 mg/dL (7-20); CALCIUM 9.7 mg/dL (8.4-10.2); CARBON DIOXIDE 30 mmol/L (22-30); CHLORIDE 103 mmol/L (98-107); GLUCOSE 122 mg/dL (75-110); POTASSIUM 5.2 mmol/L (3.6-5.0)
[2020-05-05] MEDS: LEVALBUTEROL HCL NEB 1.25 MG/3 ML AMPUL NEB SCH (08:40)
[2020-05-05] MEDS: POLYETHYLENE GLYCOL 3350 POWDER 17 GM/1 PACKET PO SCH (09:54)
[2020-05-05] MEDS: GABAPENTIN 300 MG CAPSULE PO SCH (09:54)
[2020-05-05] MEDS: CHOLECALCIFEROL (D3) 1,000 UNIT (25 MCG) TABLET PO SCH (09:54)
[2020-05-05] MEDS: LOSARTAN POTASSIUM 50 MG TABLET PO SCH (09:54)
[2020-05-05] MEDS: METHYLPREDNISOLONE INJ 40 MG/1 ML SDV IV SCH (09:54)
[2020-05-05] MEDS: PANTOPRAZOLE SODIUM 40 MG TABLET.DR PO SCH (09:54)
[2020-05-05] MEDS: ENOXAPARIN SODIUM INJ 40 MG/0.4 ML DISP.SYRIN SUBCUT SCH (09:54)
[2020-05-05] MEDS: ZINC SULFATE 220 MG CAPSULE PO SCH (09:54)
[2020-05-05] MEDS: FLUTICASONE NASAL SPRAY 50 MCG/SPRY 120 SPRAY/16 GM NASL SCH (09:54)
--- NOTE | 2020-05-05 14:05 | PDOC DISCHARGE SUMMARY ---
Impression - Admit/DC Date/PCP Admission Date/Primary Care Provider: 04/25/20 17:28 ARINA AGUIRRE MD Discharge Date: 05/05/20 - Discharge Diagnosis (1) Multifocal pneumonia Is this a current diagnosis for this admission?: Yes (2) Acute hypoxemic respiratory failure due to COVID-19 Is this a current diagnosis for this admission?: Yes (3) Elevated liver enzymes Is this a current diagnosis for this admission?: Yes (4) HTN (hypertension) Is this a current diagnosis for this admission?: Yes (5) Morbid obesity with BMI of 40.0-44.9, adult Is this a current diagnosis for this admission?: Yes (6) RONAK (obstructive sleep apnea) Is this a current diagnosis for this admission?: Yes (7) Pneumonia due to COVID-19 virus Is this a current diagnosis for this admission?: Yes (8) Thrombocytosis Is this a current diagnosis for this admission?: Yes (9) Constipation Is this a current diagnosis for this admission?: Yes (10) Hyperkalemia Is this a current diagnosis for this admission?: Yes - Assessment Summary: Multifocal Pneumonia due to COVID-19 Infection - completed antibiotic therapy with Rocephin and Zithromax x5 days - completed ivermectin therapy 04/25-04/26 -Dexamethasone discontinued. Solu-Medrol initiated. - inflammatory markers are trending down -Checking ferritin and C-reactive protein in the morning as well as serum chemistries and CBC. -CRP is down to 17.1. White blood cell count 11.6. Acute hypoxemic respiratory failure - wean down O2 as tolerated - incentive spirometry - DuoNebs scheduled and as needed -Has required increased oxygen flow. Will be trying Oxymizer mask. Continue to taper oxygen as tolerated. Oxygen saturations in the mid 90s are acceptable. -Oxygen was down to 1 L/min this morning. Will attempt to achieve adequate oxygen saturation on room air. If this is achieved then discharge home tomorrow RONAK on CPAP - doing well on his own personal CPAP machine from home at night and when napping. Appears to get restorative sleep. -Tolerating Flonase. -Patient reports that Flonase seems to be helping. HTN -He was normotensive off all BP medications -With increased blood pressure I have resumed the losartan. Will monitor vital signs. -Improved blood pressure control with losartan. Need to monitor for hypotension. Elevated liver enzymes - likely due to his acute viral infection, improving -Laboratory studies ordered for tomorrow -With the exception of ALT remaining transaminases are normal Hyperlipidemia - hold home statin due to elevated liver enzymes -Resume when transaminases normalize -Likely resume after discharge as LFTs should stabilize Thrombocytosis - likely reactive, due to infection -Platelet counts seem to be trending up slightly. We will continue to monitor. -No acute intervention at this time -Platelet count remains elevated but stable Constipation - resolved with bowel regimen Morbid obesity with BMI of 40.8 - recommend diet, exercise, weight loss Hyperkalemia -Serum potassium is 5.5 today. Will administer 1 dose of Kayexalate and recheck in the morning. Etiology is unknown. Change diet to low potassium diet. DVT ppx: Lovenox - Additional Information Resuscitation Status: Full Code Discharge Diet: Cardiac Discharge Activity: Activity As Tolerated, Balance Activity w/Rest, Slowly Increase Activity Referrals: ARINA AGUIRRE MD [Primary Care Provider] - Follow up as needed (left message to call with appointment--[email or web address]) Prescriptions: Albuterol Sulfate [Albuterol Sulfate Hfa] 2 puff IH Q4 #1 [email or web address] Prednisone 10 mg PO ASDIR 16 Days #32 tablet Montelukast Sodium [Singulair 10 mg Tablet] 10 mg PO QHS 30 Days #30 tablet Budesonide/Formoterol Fumarate [Symbicort Hfa 80-4.5 Mcg Inhaler 6.9 gm] 1 puff IH BID #1 inhaler Home Medications: Gabapentin 300 mg PO TID 11/30/19 Losartan Potassium 50 mg PO DAILY 11/30/19 Naproxen 500 mg PO Q12 11/30/19 Pravastatin Sodium 20 mg PO DAILY 11/30/19 Albuterol Sulfate [Albuterol Sulfate Hfa] 2 puff IH Q4 #1 hfa.[email or web address] 05/05/20 Budesonide/Formoterol Fumarate [Symbicort Hfa 80-4.5 Mcg Inhaler 6.9 gm] 1 puff IH BID #1 inhaler 05/05/20 Cholecalciferol (Vitamin D3) [Vitamin D3 1000 Unit Tablet] 2,000 unit PO DAILY tablet 05/05/20 Fluticasone Propionate [Flonase Nasal [place] 50 Mcg/Elk 16 gm] 2 spray NASL Q12 spray.pump 05/05/20 Montelukast Sodium [Singulair 10 mg Tablet] 10 mg PO QHS 30 Days #30 tablet 05/05/20 Pantoprazole Sodium [Protonix [address] Tablet] 40 mg PO DAILY tablet.dr 05/05/20 Polyethylene Glycol 3350 [Miralax Powder 17 gm/Packet] 17 gm PO DAILY powd.pack 05/05/20 Prednisone 10 mg PO ASDIR 16 Days #32 tablet 05/05/20 Zinc Sulfate [Zinc-220 Capsule] 220 mg PO DAILY capsule 05/05/20 History of Present Illiness History of Present Illness: JUAN LUIS HALL is a 75 year old male with history of morbid obesity, hypertension, hyperlipidemia came with complaints of shortness of breath of days duration. Denies any associated symptoms like a cough cold headache dizzy spells, fever denies any nausea vomiting diarrhea or abdominal pain. He went to medical office in [place] he thinks he got the coronavirus from there. His is also positive and she is stable at home. Patient agreed to stay in the hospital for further management and he is a full code. Labs are pending at this time. CT of the chest is pending at this time. Patient was tested at urgent care center across the hospital 2 days ago and was positive for Covid. Hospital Course Hospital Course: See details above. In brief the patient was admitted with Covid pneumonia. He was treated with vitamin supplements, remdesivir and convalescent plasma. I substituted Solu-Medrol for the Decadron. Over the last several days he has b een receiving scheduled Xopenex treatments and this seems to have made a difference as we are able to taper him down from 6 L nasal cannula to room air this week. Physical Exam Vital Signs: Temp Pulse Resp BP Pulse Ox 97.9 F 64 20 110/67 90 L 05/05/20 11:41 05/05/20 11:41 05/05/20 11:41 05/05/20 11:41 05/05/20 11:41 Intake & Output 05/04/20 05/05/20 05/06/20 06:59 06:59 06:59 Intake Total 720 960 Output Total 300 Balance 420 960 Weight 134.6 kg 135.2 kg General appearance: PRESENT: no acute distress, cooperative, well-developed Head exam: PRESENT: atraumatic, normocephalic Respiratory exam: PRESENT: clear to auscultation alma delia, symmetrical, unlabored. ABSENT: rales, rhonchi, tachypnea, wheezes Cardiovascular exam: PRESENT: RRR, +S1, +S2. ABSENT: bradycardia, diastolic murmur, irregular rhythm, systolic murmur, tachycardia GI/Abdominal exam: PRESENT: normal bowel sounds, soft. ABSENT: distended, guarding, tenderness Rectal exam: PRESENT: deferred Gentrourinary exam: ABSENT: indwelling catheter Extremities exam: ABSENT: pedal edema Musculoskeletal exam: PRESENT: ambulatory, normal inspection. ABSENT: deformity, dislocation Neurological exam: PRESENT: alert, awake, oriented to person, oriented to place, oriented to time, oriented to situation, CN II-XII grossly intact. ABSENT: altered Psychiatric exam: PRESENT: appropriate affect. ABSENT: agitated, anxious Focused psych exam: ABSENT: delusional, paranoid, restlessness Results Laboratory Results: WBC 11.6 10^3/uL (4.0-10.5) H 05/04/20 05:50 RBC 4.13 10^6/uL (4.35-5.55) L 05/04/20 05:50 Hgb 12.6 g/dL (13.5-17.0) L 05/04/20 05:50 Hct 37.2 % (37.9-51.0) L 05/04/20 05:50 MCV 90 fl (80-97) 05/04/20 05:50 MCH 30.6 pg (27.0-33.4) 05/04/20 05:50 MCHC 33.9 g/dL (32.0-36.0) 05/04/20 05:50 RDW 13.8 % (11.5-14.0) 05/04/20 05:50 Plt Count 557 10^3/uL (150-450) H 05/04/20 05:50 Lymph % (Auto) Not Reportable 04/28/20 04:47 [place] % (Auto) Not Reportable 04/28/20 04:47 Eos % (Auto) Not Reportable 04/28/20 04:47 Baso % (Auto) Not Reportable 04/28/20 04:47 Absolute Neuts (auto) Not Reportable 04/28/20 04:47 Absolute Lymphs (auto) Not Reportable 04/28/20 04:47 Absolute Monos (auto) Not Reportable 04/28/20 04:47 Absolute Eos (auto) Not Reportable 04/28/20 04:47 Absolute Basos (auto) Not Reportable 04/28/20 04:47 Total Counted 100 04/28/20 04:47 Seg Neutrophils % Not Reportable 04/28/20 04:47 Seg Neuts % (Manual) 73 % (42-78) 04/28/20 04:47 Lymphocytes % (Manual) 18 % (13-45) 04/28/20 04:47 Monocytes % (Manual) 9 % (3-13) 04/28/20 04:47 Eosinophils % (Manual) 0 % (0-6) 04/28/20 04:47 Basophils % (Manual) 0 % (0-2) 04/28/20 04:47 Abs Neuts (Manual) 9.9 10^3/uL (1.7-8.2) H 04/28/20 04:47 Abs Lymphs (Manual) 2.4 10^3/uL (0.5-4.7) 04/28/20 04:47 Abs Monocytes (Manual) 1.2 10^3/uL (0.1-1.4) 04/28/20 04:47 Absolute Eos (Manual) 0.0 10^3/uL (0.0-0.6) 04/28/20 04:47 Abs Basophils (Manual) 0.0 10^3/uL (0.0-0.2) 04/28/20 04:47 Platelet Comment ADEQUATE 04/28/20 04:47 RBC Morph Comment NORMO-CYTIC/CHROMIC 04/28/20 04:47 ESR 92 mm/hr (0-20) H 04/25/20 22:54 PT 13.8 SEC (11.4-15.4) 04/25/20 15:03 INR 1.04 04/25/20 15:03 D-Dimer 0.32 ug/mL (0.00-0.50) 04/29/20 05:39 Sodium 139.3 mmol/L (137-145) 05/05/20 04:40 Potassium 5.2 mmol/L (3.6-5.0) H 05/05/20 04:40 Chloride 103 mmol/L (98-107) 05/05/20 04:40 Carbon Dioxide 30 mmol/L (22-30) 05/05/20 04:40 Anion Gap 6 (5-19) 05/05/20 04:40 BUN 29 mg/dL (7-20) H 05/05/20 04:40 Creatinine 0.91 mg/dL (0.52-1.25) 05/05/20 04:40 Est GFR ( Amer) > 60 (>60) 05/05/20 04:40 Est GFR (MDRD) Non-Af > 60 (>60) 05/05/20 04:40 Glucose 122 mg/dL (75-110) H 05/05/20 04:40 POC Glucose 99 mg/dL (70-110) 04/25/20 15:02 Lactic Acid 1.7 mmol/L (0.7-2.1) 04/25/20 15:03 Calcium 9.7 mg/dL (8.4-10.2) 05/05/20 04:40 Phosphorus 3.3 mg/dL (2.5-4.5) 04/28/20 04:47 Magnesium 2.5 mg/dL (1.6-2.3) H 05/04/20 05:50 Ferritin 332.00 ng/mL (17.9-464.0) 05/01/20 06:10 Total Bilirubin 0.4 mg/dL (0.2-1.3) 05/04/20 05:50 Direct Bilirubin 0.2 mg/dL (0.0-0.4) 05/04/20 05:50 Neonat Total Bilirubin Not Reportable 05/04/20 05:50 Neonat Direct Bilirubin Not Reportable 05/04/20 05:50 Neonat Indirect Bili Not Reportable 05/04/20 05:50 AST 48 U/L (17-59) 05/04/20 05:50 ALT 151 U/L (<50) H 05/04/20 05:50 Alkaline Phosphatase 73 U/L (38-126) 05/04/20 05:50 Lactate Dehydrogenase 533 U/L (120-246) H 04/25/20 15:03 Creatine Kinase 110 U/L (55-170) 04/25/20 15:03 C-Reactive Protein 17.1 mg/L (<10.0) H 05/04/20 05:50 Total Protein 6.6 g/dL (6.3-8.2) 05/04/20 05:50 Albumin 3.5 g/dL (3.5-5.0) 05/04/20 05:50 Urine Color YELLOW 05/04/20 05:30 Urine Appearance CLEAR 05/04/20 05:30 Urine pH 5.0 (5.0-9.0) 05/04/20 05:30 Ur Specific [place] 1.017 05/04/20 05:30 Urine Protein NEGATIVE mg/dL (NEGATIVE) 05/04/20 05:30 Urine Glucose (UA) NEGATIVE mg/dL (NEGATIVE) 05/04/20 05:30 Urine Ketones NEGATIVE mg/dL (NEGATIVE) 05/04/20 05:30 Urine Blood NEGATIVE (NEGATIVE) 05/04/20 05:30 Urine Nitrite NEGATIVE (NEGATIVE) 05/04/20 05:30 Urine Bilirubin NEGATIVE (NEGATIVE) 05/04/20 05:30 Urine Urobilinogen NEGATIVE mg/dL (<2.0) 05/04/20 05:30 Ur Leukocyte Esterase NEGATIVE (NEGATIVE) 05/04/20 05:30 Urine WBC (Auto) 0 /HPF 05/04/20 05:30 Urine RBC (Auto) 0 /HPF 05/04/20 05:30 U Hyaline Cast (Auto) 1 /LPF 05/02/20 04:05 Urine Bacteria (Auto) TRACE /HPF 05/04/20 05:30 Squamous Epi Cells Auto <1 /HPF 05/02/20 04:05 Urine Mucus (Auto) RARE /LPF 05/04/20 05:30 Urine Ascorbic Acid NEGATIVE (NEGATIVE) 05/04/20 05:30 Influenza A (Rapid) NEGATIVE (NEGATIVE) 04/25/20 17:44 Influenza B (Rapid) NEGATIVE (NEGATIVE) 04/25/20 17:44 Blood Type A NEGATIVE 04/25/20 17:44 Impressions: Chest/Abdomen CTA 04/25/20 00:00 IMPRESSION: 1. There is no pulmonary embolus. There is no aortic aneurysm or dissection. 2. There are extensive, patchy ground-glass infiltrates bilaterally suggesting an atypical infectious/ inflammatory process. Has the patient been tested for COVID-19? Chest X-Ray 04/25/20 15:52 IMPRESSION: Bilateral multifocal parenchymal opacities concerning for multifocal pneumonia. Chest X-Ray 04/27/20 07:50 IMPRESSION: Unchanged radiographic appearance of the chest. Plan Health Concerns: Patient will need to increase his activity slowly and be conservative with exertion. I explained that it will take a while before he actually feels better/fully functional. Plan of Treatment: Continue supplements. Steroid taper. Utilize inhalers over the next several weeks. Goals: Complete recovery from pneumonia caused by Covid virus Time Spent: Greater than 30 Minutes Stroke Is this a Stroke Patient?: No Acute Heart Failure Is this a Heart Failure Patient?: No
[2020-05-05 14:13] VITALS: BP 112/72
== END 2020-05-05 16:00 | disposition home or self-care (01) | DRG 177 ==
LOC: ER 14:52 → EH 17:28 → 3W 22:28
PROVIDERS: ADMIT Internal Medicine; ATTEND Hospitalist
PROC: XW13325 Transfusion of Convalescent Plasma (Nonautologous) into Peripheral Vein, Percutaneous Approach, New Technology Group 5 (ICD-10-PCS; principal; 2020-04-26)
DX: U07.1 COVID-19 (principal); J12.89 Other viral pneumonia; J96.21 Acute and chronic respiratory failure with hypoxia; Z68.41 Body mass index [BMI] 40.0-44.9, adult; G47.30 Sleep apnea, unspecified; R94.5 Abnormal results of liver function studies; D47.3 Essential (hemorrhagic) thrombocythemia; K59.00 Constipation, unspecified; E87.5 Hyperkalemia; M19.90 Unspecified osteoarthritis, unspecified site; I10 Essential (primary) hypertension; E78.5 Hyperlipidemia, unspecified; E66.01 Morbid (severe) obesity due to excess calories; Z87.891 Personal history of nicotine dependence; Z86.14 Personal history of Methicillin resistant Staphylococcus aureus infection; Z90.49 Acquired absence of other specified parts of digestive tract; Z79.82 Long term (current) use of aspirin
CPT/HCPCS: 36415; 36430; 71045; 71275; 80048; 80053; 80069; 81001; 82550; 82728; 82962; 83605; 83615; 83735; 85025; 85027; 85379; 85610; 85652; 86140; 86900; 86901; 87040; 87804; 93005; 93010; 94640; 94660; 94799; 96374; 99285; J0456; J0696; J1100; J1650; J2920; J3490; J7060; J7614